=== PATIENT | female | born 1970 | race Asian ===

== ENCOUNTER 2016-04-11 18:09 | Emergency (ER) | payer MEDICARE, MEDICAID ==
[~2016-04-11] VITALS: Ht 152.4 cm; Wt 52.6 kg
[~2016-04-11 18:09] MED LIST: ALPR0.5T GT; ALPR0.5T PO; ASPI81TA27 PO; CLOP75TA28 PO; MORP30TA64 PO; PREG50CA PO; SEVE800T PO
[2016-04-11 18:54] LABS: Basophils # (auto) 0 uL; Basophils % (auto) 0.2 % (0.0-2.0); Eosinophils # (auto) 0 uL; Eosinophils % (auto) 0.5 % (0.0-7.0); Hematocrit 33.6 % (36.0-46.0); Hemoglobin 10.2 g/dL (12.2-16.2); Lymphocytes # (auto) 0.8 uL; Lymphocytes % (auto) 15.7 % (10.0-50.0); Mean Corpuscular Hemoglobin 27.3 pg (28.0-32.0); Mean Corpuscular Hgb Conc. 30.4 g/dL (32.0-36.0); Mean Corpuscular Volume 89.7 fL (80.0-100.0); Mean Platelet Volume 9.8 fL (7.4-10.4); Monocytes # (auto) 0.4 uL; Monocytes % (auto) 7.5 % (0.0-12.0); Neutrophils # (auto) 3.7 uL; Neutrophils % (auto) 76.1 % (37.0-80.0); Platelet Count (auto) 223 10^3/uL (140-450); Red Cell Distribution Width 17.7 % (11.6-16.0); White Blood Cell 4.8 10^3/uL (4.4-10.8)
[2016-04-11 19:17] LABS: Albumin 2.9 g/dL (3.4-5.0); BUN/Creatinine Ratio 7.2; Potassium 3.9 mmol/L (3.5-5.1)
[2016-04-11 19:20] LABS: Bilirubin, Total 0.6 mg/dL (0.2-1.0); Total Protein 7.5 g/dL (6.4-8.2)
[2016-04-11 20:33] VITALS: BP 143/85
== END 2016-04-11 21:10 | disposition home or self-care (01) ==
LOC: EDBD 18:09 → ER 18:12
DX: I13.0 Hypertensive heart and chronic kidney disease with heart failure and stage 1 through stage 4 chronic kidney disease, or unspecified chronic kidney disease (principal); I50.9 Heart failure, unspecified; N18.6 End stage renal disease; Z99.2 Dependence on renal dialysis; E11.9 Type 2 diabetes mellitus without complications; Z88.0 Allergy status to penicillin; Z88.6 Allergy status to analgesic agent; Z88.8 Allergy status to other drugs, medicaments and biological substances; Z91.041 Radiographic dye allergy status; Z87.891 Personal history of nicotine dependence; Z98.890 Other specified postprocedural states
CPT/HCPCS: 36415; 80053; 85025; 93005

== ENCOUNTER 2016-04-30 21:24 | Inpatient (IN) | payer MEDICARE, MEDICAID ==
[~2016-04-30] VITALS: Ht 152.4 cm; Wt 62.1 kg
[2016-04-30 22:14] LABS: BUN/Creatinine Ratio 4.4; Calcium 8.2 mg/dL (8.5-10.1)
[2016-04-30 22:16] LABS: Basophils # (auto) 0 uL; Basophils % (auto) 0.5 % (0.0-2.0); Eosinophils # (auto) 0 uL; Eosinophils % (auto) 2.2 % (0.0-7.0); Hematocrit 38.2 % (36.0-46.0); Hemoglobin 12.7 g/dL (12.2-16.2); Lymphocytes # (auto) 0.8 uL; Lymphocytes % (auto) 33.2 % (10.0-50.0); Mean Corpuscular Hemoglobin 29.1 pg (28.0-32.0); Mean Corpuscular Hgb Conc. 33.3 g/dL (32.0-36.0); Mean Corpuscular Volume 87.3 fL (80.0-100.0); Mean Platelet Volume 9.7 fL (7.4-10.4); Monocytes # (auto) 0.1 uL; Neutrophils # (auto) 1.4 uL; Neutrophils % (auto) 61.1 % (37.0-80.0); Platelet Count (auto) 155 10^3/uL (140-450); Red Cell Distribution Width 18.6 % (11.6-16.0); White Blood Cell 2.3 10^3/uL (4.4-10.8)
[2016-04-30 22:17] LABS: Total Protein 7.8 g/dL (6.4-8.2)
[2016-04-30 22:21] LABS: Partial Thromboplastin Time 31.9 sec (22.64-33.71)
[2016-04-30 22:23] LABS: INR 1.23 (0.9-1.15); Prothrombin Time 12.7 sec (9.37-12.3)
[2016-04-30 22:25] LABS: Potassium 2.8 mmol/L (3.5-5.1)
[2016-04-30] MEDS ORDERED: POTASSIUM CHL 20MEQ/100ML 100 ML IV ONE (22:30)
[2016-04-30 22:53] LABS: B-Type Natriuretic Peptide 694.63 pg/mL (0-100)
[2016-04-30 22:54] LABS: Temperature: 22.3 C (20.0-25.0)
[2016-05-01] VITALS (23 sets, daily range): BP systolic 145–180; BP diastolic 67–110
[2016-05-01] MEDS ORDERED: DEXTROSE (50%) 50ML SYRG IV PRN ×2 (01:00→21:30)
[2016-05-01] MEDS ORDERED: LACTULOSE 20Gm/30ML SOLN PO PRN (01:00)
[2016-05-01] MEDS ORDERED: ONDANSETRON HCL 4 MG/2 ML VIAL IV PRN (01:00)
[2016-05-01] MEDS ORDERED: NITROGLYCERIN 0.4 MG SL TAB SL PRN (01:00)
[2016-05-01] MEDS ORDERED: MORPHINE SULF INJ 2 MG/ML SYRINGE 1ML IV PRN (01:00)
[2016-05-01] MEDS: MORPHINE SULF INJ 2 MG/ML SYRINGE 1ML IV PRN ×5 (01:44→22:49)
[2016-05-01] MEDS: PREGABALIN CAPSULE 75 MG CAP PO SCH ×3 (06:06→22:51)
[2016-05-01] MEDS: InsuLIN REG 1unit/0.01ml Soln (100units/ml) SC SCH ×4 (06:11→23:57)
[2016-05-01] MEDS: ACCU-CHEK COMFORT CURVE STRIP VI SCH ×4 (06:12→23:52)
[2016-05-01] MEDS ORDERED: LISI-646 PO (07:16)
[2016-05-01] MEDS: SEVELAMER 800 MG TAB PO SCH ×3 (07:50→18:28)
[2016-05-01] MEDS ORDERED: LISINOPRIL 20 MG TAB PO SCH (10:00)
[2016-05-01] MEDS ORDERED: PANTOPRAZOLE SODIUM 40 MG/10 ML VIAL IV SCH (10:00)
[2016-05-01] MEDS: ASPirin 81 mg TAB PO SCH (10:24)
[2016-05-01] MEDS: ENOXAPARIN SOD 30 MG/0.3 ML SYRINGE SC SCH (10:24)
[2016-05-01] MEDS ORDERED: SODIUM CHL 0.9% 1000 ML BAG XX ONE (16:30)
[2016-05-01] MEDS: LABETALOL HCL 5 MG/ML 4ML SYRINGE IV PRN (20:07)
[2016-05-01] MEDS: ALPRAZolam 0.5 MG TAB PO PRN (21:30)
[2016-05-01] MEDS ORDERED: PREGABALIN CAPSULE 75 MG CAP PO SCH (22:00)
[2016-05-02] MEDS: LABETALOL HCL 5 MG/ML 4ML SYRINGE IV PRN ×3 (02:16→21:17)
[2016-05-02 05:00] VITALS: BP 157/62
[2016-05-02] MEDS: MORPHINE SULF INJ 2 MG/ML SYRINGE 1ML IV PRN ×4 (05:41→22:22)
[2016-05-02] MEDS: ACCU-CHEK COMFORT CURVE STRIP VI SCH ×3 (05:42→17:37)
[2016-05-02] MEDS: InsuLIN REG 1unit/0.01ml Soln (100units/ml) SC SCH ×3 (05:46→17:37)
[2016-05-02 06:10] LABS: Basophils # (auto) 0 uL; Basophils % (auto) 0.3 % (0.0-2.0); DEFINITIVE VIEW TRANSMISSION; Eosinophils # (auto) 0.1 uL; Eosinophils % (auto) 4.2 % (0.0-7.0); Hematocrit 26.4 % (36.0-46.0); Hemoglobin 8.8 g/dL (12.2-16.2); Lymphocytes # (auto) 1.2 uL; Lymphocytes % (auto) 39.1 % (10.0-50.0); Mean Corpuscular Hemoglobin 29.2 pg (28.0-32.0); Mean Corpuscular Hgb Conc. 33.2 g/dL (32.0-36.0); Mean Corpuscular Volume 88.1 fL (80.0-100.0); Mean Platelet Volume 9.6 fL (7.4-10.4); Monocytes # (auto) 0.3 uL; Monocytes % (auto) 8.7 % (0.0-12.0); Neutrophils # (auto) 1.5 uL; Neutrophils % (auto) 47.7 % (37.0-80.0); Platelet Count (auto) 157 10^3/uL (140-450); White Blood Cell 3.1 10^3/uL (4.4-10.8)
[2016-05-02] MEDS: SEVELAMER 800 MG TAB PO SCH ×3 (07:52→18:00)
[2016-05-02 08:31] LABS: Albumin 2.9 g/dL (3.4-5.0); BUN/Creatinine Ratio 5.4; Bilirubin, Total 0.6 mg/dL (0.2-1.0); Calcium 8.6 mg/dL (8.5-10.1); Potassium 3.3 mmol/L (3.5-5.1); Total Protein 7.2 g/dL (6.4-8.2)
[2016-05-02 09:00] VITALS: BP 136/90
[2016-05-02] MEDS ORDERED: HYDROcodone-ACET 5/325MG TAB PO ONE (09:00)
[2016-05-02] MEDS: ENOXAPARIN SOD 30 MG/0.3 ML SYRINGE SC SCH (09:09)
[2016-05-02] MEDS: PREGABALIN CAPSULE 75 MG CAP PO SCH ×2 (09:10→22:18)
[2016-05-02] MEDS: ASPirin 81 mg TAB PO SCH (09:10)
[2016-05-02] MEDS: LISINOPRIL 20 MG TAB PO SCH (10:00)
[2016-05-02 13:00] VITALS: BP 136/76
[2016-05-02] MEDS ORDERED: EPOETIN ALFA 10,000 UNIT/1 ML VIAL IV ONE (14:00)
[2016-05-02 17:17] VITALS: BP 133/54
[2016-05-02] MEDS: Novasource Renal 8 Ounces PO SCH (18:00)
[2016-05-02 22:00] VITALS: BP 170/73
[2016-05-02] MEDS: ALPRAZolam 0.5 MG TAB PO PRN (22:18)
[2016-05-03] MEDS: ACCU-CHEK COMFORT CURVE STRIP VI SCH ×4 (00:10→17:53)
[2016-05-03] MEDS: InsuLIN REG 1unit/0.01ml Soln (100units/ml) SC SCH ×5 (00:25→23:46)
[2016-05-03] MEDS: MORPHINE SULF INJ 2 MG/ML SYRINGE 1ML IV PRN ×4 (05:07→20:58)
[2016-05-03 05:49] VITALS: BP 138/79
[2016-05-03] MEDS: Novasource Renal 8 Ounces PO SCH ×2 (08:00→17:53)
[2016-05-03] MEDS: SEVELAMER 800 MG TAB PO SCH ×3 (08:12→17:53)
[2016-05-03 08:14] VITALS: BP 164/77
[2016-05-03 08:19] LABS: Hematocrit 24.6 % (36.0-46.0); Hemoglobin 8.1 g/dL (12.2-16.2)
[2016-05-03 08:35] LABS: Potassium 3.4 mmol/L (3.5-5.1)
[2016-05-03 08:49] LABS: Magnesium 2.5 mg/dL (1.6-2.6)
[2016-05-03] MEDS ORDERED: POTASSIUM CHL 10 Meq TABLET PO ONE (09:30)
[2016-05-03] MEDS: PREGABALIN CAPSULE 75 MG CAP PO SCH ×2 (10:39→21:58)
[2016-05-03] MEDS: ASPirin 81 mg TAB PO SCH (10:40)
[2016-05-03] MEDS: LISINOPRIL 20 MG TAB PO SCH (10:40)
[2016-05-03] MEDS: ENOXAPARIN SOD 30 MG/0.3 ML SYRINGE SC SCH (10:41)
[2016-05-03 13:00] VITALS: BP 80/58
[2016-05-03 16:53] VITALS: BP 142/76
[2016-05-03 22:00] VITALS: BP 93/58
[2016-05-03] MEDS: ALPRAZolam 0.5 MG TAB PO PRN (23:31)
[2016-05-04 06:00] VITALS: BP 91/31
[2016-05-04] MEDS: ACCU-CHEK COMFORT CURVE STRIP VI SCH ×4 (06:18→18:05)
[2016-05-04] MEDS: InsuLIN REG 1unit/0.01ml Soln (100units/ml) SC SCH ×3 (06:19→18:00)
[2016-05-04 07:34] LABS: Basophils # (auto) 0 uL; Basophils % (auto) 0.4 % (0.0-2.0); DEFINITIVE VIEW TRANSMISSION; Eosinophils # (auto) 0 uL; Eosinophils % (auto) 0.5 % (0.0-7.0); Hematocrit 28.1 % (36.0-46.0); Hemoglobin 8.9 g/dL (12.2-16.2); Lymphocytes # (auto) 1.3 uL; Lymphocytes % (auto) 35.1 % (10.0-50.0); Mean Corpuscular Hemoglobin 28.3 pg (28.0-32.0); Mean Corpuscular Hgb Conc. 31.8 g/dL (32.0-36.0); Mean Corpuscular Volume 89.2 fL (80.0-100.0); Mean Platelet Volume 9.9 fL (7.4-10.4); Monocytes # (auto) 0.4 uL; Monocytes % (auto) 11.1 % (0.0-12.0); Neutrophils % (auto) 52.9 % (37.0-80.0); Platelet Count (auto) 113 10^3/uL (140-450); Red Cell Distribution Width 19.6 % (11.6-16.0); White Blood Cell 3.8 10^3/uL (4.4-10.8)
[2016-05-04 08:00] LABS: BUN/Creatinine Ratio 9.3; Calcium 8.9 mg/dL (8.5-10.1); Potassium 4.6 mmol/L (3.5-5.1)
[2016-05-04] MEDS: Novasource Renal 8 Ounces PO SCH ×2 (08:00→18:05)
[2016-05-04] MEDS: SEVELAMER 800 MG TAB PO SCH ×3 (08:25→18:04)
[2016-05-04 08:30] VITALS: BP 68/45
[2016-05-04] MEDS ORDERED: LEVOFLOXACIN 750MG 150 ML IV SCH (08:45)
[2016-05-04] MEDS ORDERED: cefTRIAXone 1GM/50ML D5W 50 ML IV SCH (09:00)
[2016-05-04] MEDS ORDERED: LEVOFLOXACIN 750MG 150 ML IV ONE (09:00)
[2016-05-04 09:23] LABS: Partial Thromboplastin Time 39.8 sec (22.64-33.71)
[2016-05-04 09:24] LABS: INR 1.38 (0.9-1.15); Prothrombin Time 14.2 sec (9.37-12.3)
[2016-05-04] MEDS: ENOXAPARIN SOD 30 MG/0.3 ML SYRINGE SC SCH (10:00)
[2016-05-04] MEDS: PREGABALIN CAPSULE 75 MG CAP PO SCH ×2 (11:58→21:46)
[2016-05-04] MEDS: LISINOPRIL 20 MG TAB PO SCH (11:59)
[2016-05-04] MEDS: ASPirin 81 mg TAB PO SCH (11:59)
[2016-05-04] MEDS ORDERED: LEVO750T64 PO (12:05)
[2016-05-04 12:16] VITALS: BP 168/73
[2016-05-04] MEDS: LABETALOL HCL 5 MG/ML 4ML SYRINGE IV PRN (15:45)
[2016-05-04 16:43] VITALS: BP 154/69
[2016-05-04 17:35] LABS: Body Fluid Polymorphonuclear 10 %
[2016-05-04 21:30] VITALS: BP 146/66
[2016-05-04] MEDS: MORPHINE SULF INJ 2 MG/ML SYRINGE 1ML IV PRN (21:50)
[2016-05-04] MEDS: ALPRAZolam 0.5 MG TAB PO PRN (23:15)
[2016-05-05] VITALS (7 sets, daily range): BP systolic 124–154; BP diastolic 44–95
[2016-05-05] MEDS: InsuLIN REG 1unit/0.01ml Soln (100units/ml) SC SCH ×4 (05:54→17:58)
[2016-05-05] MEDS: ACCU-CHEK COMFORT CURVE STRIP VI SCH ×5 (05:57→23:55)
[2016-05-05] MEDS: MORPHINE SULF INJ 2 MG/ML SYRINGE 1ML IV PRN ×2 (07:53→21:57)
[2016-05-05] MEDS: SEVELAMER 800 MG TAB PO SCH ×3 (07:57→18:09)
[2016-05-05] MEDS: Novasource Renal 8 Ounces PO SCH ×2 (08:00→17:57)
[2016-05-05] MEDS: ENOXAPARIN SOD 30 MG/0.3 ML SYRINGE SC SCH (08:57)
[2016-05-05] MEDS: PREGABALIN CAPSULE 75 MG CAP PO SCH ×2 (08:58→21:57)
[2016-05-05] MEDS: LISINOPRIL 20 MG TAB PO SCH (08:58)
[2016-05-05] MEDS: ASPirin 81 mg TAB PO SCH (08:58)
[2016-05-05] MEDS ORDERED: LEVOFLOXACIN 500MG 100 ML IV SCH (10:00)
[2016-05-05] MEDS ORDERED: SODIUM CHL 0.9% 1000 ML BAG XX ONE (12:00)
[2016-05-05] MEDS ORDERED: EPOETIN ALFA 10,000 UNIT/1 ML VIAL IV ONE (12:00)
[2016-05-05 17:07] LABS: Albumin, Body Fluid 2.4 g/dL (.)
[2016-05-05] MEDS: ALPRAZolam 0.5 MG TAB PO PRN (23:54)
[2016-05-06] MEDS: MORPHINE SULF INJ 2 MG/ML SYRINGE 1ML IV PRN ×4 (05:30→18:40)
[2016-05-06 05:33] VITALS: BP 139/68
[2016-05-06] MEDS: ACCU-CHEK COMFORT CURVE STRIP VI SCH ×3 (06:00→17:41)
[2016-05-06] MEDS: InsuLIN REG 1unit/0.01ml Soln (100units/ml) SC SCH ×4 (06:01→17:45)
[2016-05-06 09:00] VITALS: BP 144/87
[2016-05-06] MEDS ORDERED: LEVOFLOXACIN 500MG 100 ML IV SCH (09:00)
[2016-05-06] MEDS: LISINOPRIL 20 MG TAB PO SCH (09:53)
[2016-05-06] MEDS: SEVELAMER 800 MG TAB PO SCH ×3 (09:53→17:39)
[2016-05-06] MEDS: ENOXAPARIN SOD 30 MG/0.3 ML SYRINGE SC SCH (09:54)
[2016-05-06] MEDS: ASPirin 81 mg TAB PO SCH (10:00)
[2016-05-06] MEDS: Novasource Renal 8 Ounces PO SCH ×2 (10:02→17:03)
[2016-05-06] MEDS: PREGABALIN CAPSULE 75 MG CAP PO SCH (11:45)
[2016-05-06 13:00] VITALS: BP 170/74
[2016-05-06] MEDS: LABETALOL HCL 5 MG/ML 4ML SYRINGE IV PRN (13:08)
[2016-05-06 17:00] VITALS: BP 142/69
== END 2016-05-06 21:00 | disposition home or self-care (01) | DRG 291 ==
LOC: ER 21:24 → TELE 21:25 → ICU WEST 05-01 03:43 → TELE-WESTW 05-01 22:13 → WEST WING 05-06 00:37
PROVIDERS: ADMIT Family Medicine; ATTEND Internal Medicine
PROC: 0W993ZZ Drainage of Right Pleural Cavity, Percutaneous Approach (ICD-10-PCS; principal; 2016-04-30)
PROC: 5A1D60Z (ICD-10-PCS; 2016-05-02)
DX: I13.2 Hypertensive heart and chronic kidney disease with heart failure and with stage 5 chronic kidney disease, or end stage renal disease (principal); I50.23 Acute on chronic systolic (congestive) heart failure; J96.01 Acute respiratory failure with hypoxia; N18.6 End stage renal disease; E44.0 Moderate protein-calorie malnutrition; F11.20 Opioid dependence, uncomplicated; E87.6 Hypokalemia; E11.65 Type 2 diabetes mellitus with hyperglycemia; E11.22 Type 2 diabetes mellitus with diabetic chronic kidney disease; D63.8 Anemia in other chronic diseases classified elsewhere; E11.21 Type 2 diabetes mellitus with diabetic nephropathy; E11.40 Type 2 diabetes mellitus with diabetic neuropathy, unspecified; E87.70 Fluid overload, unspecified; G89.29 Other chronic pain; Z79.4 Long term (current) use of insulin; Z87.891 Personal history of nicotine dependence; Z91.19 Patient's noncompliance with other medical treatment and regimen; Z95.5 Presence of coronary angioplasty implant and graft; Z99.2 Dependence on renal dialysis
CPT/HCPCS: 36415; 36600; 71010; 76942; 80048; 80053; 82805; 82962; 83036; 83615; 83735; 83880; 84132; 84702; 85014; 85018; 85025; 85610; 85730; 86850; 86900; 86901; 86920; 87081; 89051; 90935; 93005; 93971; 94660; 96360; 96361; C9113; J0885; J1642; J1815; J1956; J3480; J3490

== ENCOUNTER 2017-04-20 16:06 | Inpatient (IN) | payer MEDICARE, MEDICAID ==
[~2017-04-20] VITALS: Ht 157.5 cm; Wt 58.0 kg
[~2017-04-20 16:06] MED LIST changes: -ALPR0.5T GT; +LISI-646 PO; +MORP-110 PO; -MORP30TA64 PO
[2017-04-20] MEDS ORDERED: SUCCINYLCHOLINE CHLORIDE 20 MG/ML 10ML VIAL IV ONE ×2 (16:11→16:15)
[2017-04-20] MEDS ORDERED: ETOMIDATE (2MG/ML) 20ML VIAL IV ONE ×2 (16:11→16:15)
[2017-04-20] MEDS ORDERED: MIDAZOLAM DRIP 50 mg/50mL 50 ML IV ONE (16:18)
[2017-04-20] MEDS ORDERED: methylPREDNISolone SOD SUCC 125 MG/2 ML VL ONE (16:20)
[2017-04-20] MEDS ORDERED: MIDAZOLAM DRIP 50 mg/50mL 50 ML IV SCH (16:21)
[2017-04-20] MEDS ORDERED: methylPREDNISolone SOD SUCC 125 MG/2 ML VL IV ONE (16:30)
[2017-04-20] MEDS ORDERED: PROPOFOL 100 ML IV ONE (16:41)
[2017-04-20 17:26] LABS: Basophils # (auto) 0 uL; Eosinophils # (auto) 0.1 uL; Monocytes # (auto) 0.8 uL
[2017-04-20 17:27] LABS: Basophils % (auto) 0.1 % (0.0-2.0); Eosinophils % (auto) 1.3 % (0.0-7.0); Hematocrit 23.8 % (36.0-46.0); Hemoglobin 7.6 g/dL (12.2-16.2); Lymphocytes # (auto) 0.9 uL; Lymphocytes % (auto) 9.4 % (10.0-50.0); Mean Corpuscular Hemoglobin 29.5 pg (28.0-32.0); Monocytes % (auto) 8.2 % (0.0-12.0); Neutrophils # (auto) 7.4 uL; Platelet Count (auto) 96 10^3/uL (140-450); Red Blood Cells 2.59 10^6/uL (4.0-5.20); Red Cell Distribution Width 15.9 % (11.8-14.3); White Blood Cell 9.1 10^3/uL (4.4-10.8)
[2017-04-20 17:39] LABS: Partial Thromboplastin Time 33.3 sec (22.64-33.71); Prothrombin Time 10.9 sec (9.37-12.3)
[2017-04-20] MEDS ORDERED: PROPOFOL 100 ML IV SCH ×2 (17:40→17:49)
[2017-04-20 17:41] LABS: Alanine Aminotransferase 12 U/L (13-56); Albumin 3.4 g/dL (3.4-5.0); Alkaline Phosphatase 133 U/L (45-117); Anion Gap 15 (5-15); Aspartate Aminotransferase 17 U/L (15-37); BUN/Creatinine Ratio 8.3; Bilirubin, Total 0.6 mg/dL (0.2-1.0); Blood Alcohol < 3.0 mg/dL (0-5); Blood Urea Nitrogen 44 mg/dL (7-18); Calcium 8.5 mg/dL (8.5-10.1); Carbon Dioxide 23 mmol/L (21-32); Chloride 97 mmol/L (98-107); GFR African American 11 mL/min; GFR Non-African American 9 mL/min; Glucose 219 mg/dL (74-106); Magnesium 2.9 mg/dL (1.6-2.6); Potassium 4.4 mmol/L (3.5-5.1); Sodium 135 mmol/L (136-145); Total Protein 7.2 g/dL (6.4-8.2)
[2017-04-20 18:40] VITALS: BP 130/95
[2017-04-20] MEDS ORDERED: SODIUM CHLORIDE 0.9% 1,000 ML IV SCH (19:05)
[2017-04-20] MEDS: MIDAZOLAM DRIP 50 mg/50mL 50 ML IV SCH (19:14)
[2017-04-20] MEDS: PROPOFOL 100 ML IV SCH (19:14)
[2017-04-20] MEDS ORDERED: MORPHINE SULFATE 4 MG/ML SYR/VIAL IV PRN (19:15)
[2017-04-20] MEDS ORDERED: NITROGLYCERIN 0.4 MG SL TAB SL PRN (19:15)
[2017-04-20] MEDS ORDERED: ONDANSETRON HCL 4 MG/2 ML VIAL IV PRN (19:15)
[2017-04-20] MEDS ORDERED: DEXTROSE (50%) 50ML SYRG IV PRN (19:15)
[2017-04-20] MEDS ORDERED: LEVOFLOXACIN 250MG 50 ML IV SCH (19:30)
[2017-04-20] MEDS ORDERED: VANCOMYCIN PER PHARMACY 0 MG IV SCH (19:30)
[2017-04-20] MEDS ORDERED: PANTOPRAZOLE 40 MG/10 ML VIAL IV ONE (19:30)
[2017-04-20] MEDS ORDERED: LEVOFLOXACIN 250MG 50 ML IV ONE (19:30)
[2017-04-20] MEDS ORDERED: LABETALOL HCL 5 MG/ML ML 20ML VIAL IV PRN (19:30)
[2017-04-20] MEDS ORDERED: FAMOTIDINE (10MG/ML) 2ML VL IV ONE (19:30)
[2017-04-20 19:42] LABS: Lactic Acid w/Reflex 2.1 mmol/L (0.4-2.0)
[2017-04-20] MEDS ORDERED: VANCOMYCIN 750 MG in D5W 5% 250 ML IV ONE (19:45)
[2017-04-20] MEDS ORDERED: HEPARIN SODIUM (PORCINE) 5000 UNITS/ML 1ML VIAL ONE (20:05)
[2017-04-20 20:25] VITALS: BP 127/36
[2017-04-20] MEDS ORDERED: HEPARIN 1,000 UNITS/ml 1ML VIAL ONE (21:48)
[2017-04-20] MEDS ORDERED: NEOMYCIN-BACITRACIN-POLYM 15GM TOP OINT TOP ONE (22:15)
[2017-04-20 22:56] LABS: Hematocrit 19.4 % (36.0-46.0)
[2017-04-20 23:02] LABS: Hemoglobin 6.2 g/dL (12.2-16.2)
[2017-04-20 23:05] VITALS: BP 116/72
[2017-04-20 23:14] VITALS: BP 89/58
[2017-04-20 23:30] VITALS: BP 94/58
[2017-04-20 23:45] VITALS: BP 101/60
[2017-04-21] VITALS (105 sets, daily range): BP systolic 81–169; BP diastolic 33–113
[2017-04-21] MEDS: ALBUTEROL SULF 2.5 MG/0.5ML(0.5%) NEB SOLN NEB SCH ×4 (00:20→18:45)
[2017-04-21] MEDS: IPRATROPIUM BROM 0.5 MG/2.5ML INH SOL NEB SCH ×4 (00:20→18:45)
[2017-04-21] MEDS: InsuLIN REG 1unit/0.01ml Soln (100units/ml) SC SCH ×4 (00:36→18:02)
[2017-04-21] MEDS: NOREPINEPHRINE 8 MG/250ML KIT 250 ML IV SCH (02:05)
[2017-04-21 04:24] LABS: Albumin 2.9 g/dL (3.4-5.0)
[2017-04-21 04:30] LABS: BUN/Creatinine Ratio 9.6; Bilirubin, Total 0.7 mg/dL (0.2-1.0); Total Protein 5.8 g/dL (6.4-8.2)
[2017-04-21] MEDS: ACCU-CHEK COMFORT CURVE STRIP VI SCH ×4 (06:20→18:02)
[2017-04-21 07:45] LABS: Basophils # (auto) 0 uL; Eosinophils # (auto) 0 uL; Hemoglobin 8.3 g/dL (12.2-16.2); Monocytes # (auto) 0.1 uL; Monocytes % (auto) 1.5 % (0.0-12.0); Neutrophils # (auto) 7.3 uL; White Blood Cell 7.9 10^3/uL (4.4-10.8)
[2017-04-21 07:47] LABS: Hematocrit 24.9 % (36.0-46.0); Lymphocytes # (auto) 0.5 uL; Lymphocytes % (auto) 6.2 % (10.0-50.0); Mean Corpuscular Hemoglobin 29.6 pg (28.0-32.0); Mean Corpuscular Hgb Conc. 33.4 g/dL (32.0-36.0); Mean Corpuscular Volume 88.6 fL (80.0-100.0); Neutrophils % (auto) 92.3 % (37.0-80.0); Platelet Count (auto) 130 10^3/uL (140-450); Red Blood Cells 2.81 10^6/uL (4.0-5.20); Red Cell Distribution Width 15.8 % (11.8-14.3)
[2017-04-21] MEDS: PROPOFOL 100 ML IV SCH ×2 (08:37→15:02)
[2017-04-21] MEDS: MIDAZOLAM DRIP 50 mg/50mL 50 ML IV SCH ×2 (09:33→15:02)
[2017-04-21] MEDS ORDERED: EPOETIN ALFA 10,000 UNIT/1 ML VIAL IV ONE (09:45)
[2017-04-21] MEDS ORDERED: SODIUM CHL 0.9% 1000 ML BAG XX ONE (09:45)
[2017-04-21] MEDS ORDERED: SODIUM CHLORIDE 0.9% 1,000 ML IV SCH (11:30)
[2017-04-21 13:04] LABS: Folate (Folic Acid) 7.06 ng/mL (5.38-24)
[2017-04-21] MEDS: LEVOFLOXACIN 250MG 50 ML IV SCH (14:00)
[2017-04-21] MEDS: FAMOTIDINE (10MG/ML) 2ML VL IV SCH (14:00)
[2017-04-21] MEDS: PANTOPRAZOLE 40 MG/10 ML VIAL IV SCH (14:00)
[2017-04-22] VITALS (101 sets, daily range): BP systolic 81–162; BP diastolic 29–92
[2017-04-22] MEDS: ALBUTEROL SULF 2.5 MG/0.5ML(0.5%) NEB SOLN NEB SCH ×4 (00:34→18:00)
[2017-04-22] MEDS: IPRATROPIUM BROM 0.5 MG/2.5ML INH SOL NEB SCH ×4 (00:34→18:00)
[2017-04-22] MEDS: NOREPINEPHRINE 8 MG/250ML KIT 250 ML IV SCH (01:45)
[2017-04-22 03:06] LABS: Basophils # (auto) 0 uL; Eosinophils # (auto) 0 uL; Hemoglobin 7.7 g/dL (12.2-16.2); White Blood Cell 6.3 10^3/uL (4.4-10.8)
[2017-04-22 03:09] LABS: Basophils % (auto) 0.1 % (0.0-2.0); Lymphocytes # (auto) 0.5 uL; Lymphocytes % (auto) 8.4 % (10.0-50.0); Mean Corpuscular Hemoglobin 29.5 pg (28.0-32.0); Mean Corpuscular Hgb Conc. 33.6 g/dL (32.0-36.0); Mean Corpuscular Volume 87.8 fL (80.0-100.0); Monocytes # (auto) 0.6 uL; Monocytes % (auto) 9.7 % (0.0-12.0); Neutrophils # (auto) 5.2 uL; Neutrophils % (auto) 81.8 % (37.0-80.0); Nucleated Red Blood Cells % 0.1 %; Platelet Count (auto) 152 10^3/uL (140-450); Red Blood Cells 2.62 10^6/uL (4.0-5.20); Red Cell Distribution Width 15.9 % (11.8-14.3)
[2017-04-22 03:27] LABS: Albumin 2.7 g/dL (3.4-5.0); BUN/Creatinine Ratio 8.7; Calcium 8.1 mg/dL (8.5-10.1)
[2017-04-22 03:40] LABS: Bilirubin, Total 0.5 mg/dL (0.2-1.0); Total Protein 5.9 g/dL (6.4-8.2)
[2017-04-22] MEDS: ACCU-CHEK COMFORT CURVE STRIP VI SCH ×4 (05:44→18:14)
[2017-04-22] MEDS: InsuLIN REG 1unit/0.01ml Soln (100units/ml) SC SCH ×4 (05:45→18:00)
[2017-04-22] MEDS ORDERED: VANCOMYCIN 1GM/250ML 250 ML IV ONE (10:45)
[2017-04-22] MEDS: FAMOTIDINE (10MG/ML) 2ML VL IV SCH (10:55)
[2017-04-22] MEDS: PANTOPRAZOLE 40 MG/10 ML VIAL IV SCH (10:55)
[2017-04-22] MEDS ORDERED: ALPRAZolam 0.5 MG TAB PO PRN (13:30)
[2017-04-22] MEDS: SEVELAMER 800 MG TAB PO SCH (20:00)
[2017-04-22] MEDS: MORPHINE SULFATE 4 MG/ML SYR/VIAL IV PRN (20:20)
[2017-04-22] MEDS: PREGABALIN 25 MG CAP PO SCH (22:05)
[2017-04-23] VITALS (52 sets, daily range): BP systolic 80–159; BP diastolic 25–97
[2017-04-23] MEDS: InsuLIN REG 1unit/0.01ml Soln (100units/ml) SC SCH ×5 (00:10→23:45)
[2017-04-23] MEDS: ACCU-CHEK COMFORT CURVE STRIP VI SCH ×5 (00:10→23:46)
[2017-04-23] MEDS: MORPHINE SULFATE 4 MG/ML SYR/VIAL IV PRN ×3 (00:20→14:43)
[2017-04-23] MEDS: ALBUTEROL SULF 2.5 MG/0.5ML(0.5%) NEB SOLN NEB SCH ×4 (00:23→19:05)
[2017-04-23] MEDS: IPRATROPIUM BROM 0.5 MG/2.5ML INH SOL NEB SCH ×4 (00:23→19:05)
[2017-04-23] MEDS: NOREPINEPHRINE 8 MG/250ML KIT 250 ML IV SCH (01:45)
[2017-04-23 05:12] LABS: Basophils # (auto) 0 uL; Basophils % (auto) 0.8 % (0.0-2.0); Eosinophils # (auto) 0.1 uL; Lymphocytes # (auto) 0.7 uL; Mean Corpuscular Volume 89.5 fL (80.0-100.0); Monocytes # (auto) 0.6 uL
[2017-04-23 05:13] LABS: Eosinophils % (auto) 1.6 % (0.0-7.0); Hematocrit 19.9 % (36.0-46.0); Lymphocytes % (auto) 13.3 % (10.0-50.0); Mean Corpuscular Hemoglobin 29.5 pg (28.0-32.0); Mean Corpuscular Hgb Conc. 32.9 g/dL (32.0-36.0); Monocytes % (auto) 11.1 % (0.0-12.0); Neutrophils # (auto) 3.6 uL; Neutrophils % (auto) 73.2 % (37.0-80.0); Platelet Count (auto) 124 10^3/uL (140-450); Red Blood Cells 2.23 10^6/uL (4.0-5.20); Red Cell Distribution Width 15.9 % (11.8-14.3)
[2017-04-23 05:17] LABS: Hemoglobin 6.6 g/dL (12.2-16.2)
[2017-04-23 05:25] LABS: BUN/Creatinine Ratio 9.1; Calcium 7.1 mg/dL (8.5-10.1); Potassium 3.9 mmol/L (3.5-5.1)
[2017-04-23] MEDS ORDERED: EPOETIN ALFA 10,000 UNIT/1 ML VIAL IV ONE (06:30)
[2017-04-23] MEDS ORDERED: LIDOCAINE 1% HCL (LOCAL ANESTH.) INJ 20ML MDV IJ ONE (06:30)
[2017-04-23] MEDS ORDERED: HYDROcodone-ACET 5/325MG TAB PO PRN (09:15)
[2017-04-23] MEDS: PREGABALIN 25 MG CAP PO SCH ×2 (10:25→22:38)
[2017-04-23] MEDS: SEVELAMER 800 MG TAB PO SCH ×3 (10:25→18:22)
[2017-04-23] MEDS: PANTOPRAZOLE 40 MG/10 ML VIAL IV SCH (10:25)
[2017-04-23] MEDS: LEVOFLOXACIN 250MG 50 ML IV SCH (10:25)
[2017-04-23] MEDS ORDERED: VANCOMYCIN 500 MG in D5W 5% 100 ML IV ONE (18:00)
[2017-04-23] MEDS: HYDROcodone-ACET 10/325MG TAB PO PRN (22:39)
[2017-04-23] MEDS: ALPRAZolam 0.5 MG TAB PO PRN (22:49)
[2017-04-24] VITALS (8 sets, daily range): BP systolic 95–147; BP diastolic 58–95
[2017-04-24] MEDS: ALBUTEROL SULF 2.5 MG/0.5ML(0.5%) NEB SOLN NEB SCH ×4 (01:11→20:13)
[2017-04-24] MEDS: IPRATROPIUM BROM 0.5 MG/2.5ML INH SOL NEB SCH ×4 (01:11→20:13)
[2017-04-24] MEDS: MORPHINE SULFATE 4 MG/ML SYR/VIAL IV PRN ×3 (02:48→16:10)
[2017-04-24] MEDS: InsuLIN REG 1unit/0.01ml Soln (100units/ml) SC SCH ×3 (06:00→18:19)
[2017-04-24] MEDS: ACCU-CHEK COMFORT CURVE STRIP VI SCH ×3 (06:15→18:19)
[2017-04-24] MEDS: HYDROcodone-ACET 10/325MG TAB PO PRN (06:21)
[2017-04-24 06:34] LABS: Basophils # (auto) 0 uL; Basophils % (auto) 0.4 % (0.0-2.0); Eosinophils # (auto) 0.1 uL; Eosinophils % (auto) 1.3 % (0.0-7.0); Hematocrit 25.6 % (36.0-46.0); Hemoglobin 8.7 g/dL (12.2-16.2); Lymphocytes # (auto) 0.6 uL; Lymphocytes % (auto) 10.3 % (10.0-50.0); Mean Corpuscular Hemoglobin 30.3 pg (28.0-32.0); Mean Corpuscular Hgb Conc. 34.1 g/dL (32.0-36.0); Mean Corpuscular Volume 88.7 fL (80.0-100.0); Monocytes # (auto) 0.6 uL; Monocytes % (auto) 11.2 % (0.0-12.0); Neutrophils # (auto) 4.3 uL; Neutrophils % (auto) 76.8 % (37.0-80.0); Nucleated Red Blood Cells % 0.1 %; Platelet Count (auto) 114 10^3/uL (140-450); Red Blood Cells 2.89 10^6/uL (4.0-5.20); White Blood Cell 5.7 10^3/uL (4.4-10.8)
[2017-04-24 06:51] LABS: Albumin 2.8 g/dL (3.4-5.0); Calcium 7.2 mg/dL (8.5-10.1); Potassium 4.2 mmol/L (3.5-5.1)
[2017-04-24 06:53] LABS: BUN/Creatinine Ratio 6.3
[2017-04-24 06:56] LABS: Bilirubin, Total 0.5 mg/dL (0.2-1.0); Total Protein 6.1 g/dL (6.4-8.2)
[2017-04-24] MEDS: SEVELAMER 800 MG TAB PO SCH ×3 (08:12→18:19)
[2017-04-24] MEDS: PANTOPRAZOLE 40 MG/10 ML VIAL IV SCH (10:06)
[2017-04-24] MEDS: PREGABALIN 25 MG CAP PO SCH ×2 (10:06→22:08)
[2017-04-24] MEDS: ALPRAZolam 0.5 MG TAB PO PRN (11:50)
[2017-04-25] VITALS (7 sets, daily range): BP systolic 107–135; BP diastolic 49–66
[2017-04-25] MEDS: InsuLIN REG 1unit/0.01ml Soln (100units/ml) SC SCH ×4 (00:05→18:00)
[2017-04-25] MEDS: ACCU-CHEK COMFORT CURVE STRIP VI SCH ×4 (00:05→18:22)
[2017-04-25] MEDS: MORPHINE SULFATE 4 MG/ML SYR/VIAL IV PRN ×5 (00:17→20:14)
[2017-04-25] MEDS: ALBUTEROL SULF 2.5 MG/0.5ML(0.5%) NEB SOLN NEB SCH ×4 (00:25→18:25)
[2017-04-25] MEDS: IPRATROPIUM BROM 0.5 MG/2.5ML INH SOL NEB SCH ×4 (00:25→18:25)
[2017-04-25] MEDS: ALPRAZolam 0.5 MG TAB PO PRN ×2 (08:28→21:34)
[2017-04-25] MEDS: SEVELAMER 800 MG TAB PO SCH ×3 (08:28→18:23)
[2017-04-25] MEDS: LEVOFLOXACIN 250MG 50 ML IV SCH (09:56)
[2017-04-25] MEDS: PREGABALIN 25 MG CAP PO SCH ×2 (09:56→21:34)
[2017-04-25] MEDS: PANTOPRAZOLE 40 MG/10 ML VIAL IV SCH (09:56)
[2017-04-25] MEDS ORDERED: SODIUM CHL 0.9% 1000 ML BAG XX ONE (10:45)
[2017-04-25] MEDS ORDERED: EPOETIN ALFA 10,000 UNIT/1 ML VIAL IV ONE (10:45)
[2017-04-25] MEDS: HYDROcodone-ACET 10/325MG TAB PO PRN (12:58)
[2017-04-26] VITALS (68 sets, daily range): BP systolic 81–172; BP diastolic 43–102
[2017-04-26] MEDS: ACCU-CHEK COMFORT CURVE STRIP VI SCH ×4 (00:38→18:20)
[2017-04-26] MEDS: InsuLIN REG 1unit/0.01ml Soln (100units/ml) SC SCH ×4 (00:38→18:21)
[2017-04-26] MEDS: MORPHINE SULFATE 4 MG/ML SYR/VIAL IV PRN (01:42)
[2017-04-26] MEDS: IPRATROPIUM BROM 0.5 MG/2.5ML INH SOL NEB SCH ×3 (06:49→18:49)
[2017-04-26] MEDS: ALBUTEROL SULF 2.5 MG/0.5ML(0.5%) NEB SOLN NEB SCH ×3 (06:49→18:49)
[2017-04-26] MEDS ORDERED: SODIUM BICARBONATE 8.4 % INJ 50ML VIAL IV ONE (06:59)
[2017-04-26 07:00] LABS: Basophils # (auto) 0 uL; Lymphocytes # (auto) 0.5 uL; Monocytes # (auto) 0.7 uL
[2017-04-26 07:02] LABS: Basophils % (auto) 0.4 % (0.0-2.0); Eosinophils # (auto) 0.1 uL; Eosinophils % (auto) 1.9 % (0.0-7.0); Hematocrit 24.5 % (36.0-46.0); Hemoglobin 8.1 g/dL (12.2-16.2); Lymphocytes % (auto) 7.4 % (10.0-50.0); Mean Corpuscular Hemoglobin 30.3 pg (28.0-32.0); Mean Corpuscular Hgb Conc. 33.3 g/dL (32.0-36.0); Mean Corpuscular Volume 90.9 fL (80.0-100.0); Monocytes % (auto) 10.7 % (0.0-12.0); Neutrophils # (auto) 5.5 uL; Neutrophils % (auto) 79.6 % (37.0-80.0); Platelet Count (auto) 112 10^3/uL (140-450); Red Blood Cells 2.69 10^6/uL (4.0-5.20); Red Cell Distribution Width 15.9 % (11.8-14.3); White Blood Cell 6.9 10^3/uL (4.4-10.8)
[2017-04-26] MEDS ORDERED: PROPOFOL 100 ML IV ONE (07:11)
[2017-04-26 07:17] LABS: Albumin 2.5 g/dL (3.4-5.0); BUN/Creatinine Ratio 7.3; Calcium 7.6 mg/dL (8.5-10.1); Potassium 4.7 mmol/L (3.5-5.1)
[2017-04-26] MEDS: MIDAZOLAM DRIP 50 mg/50mL 50 ML IV SCH ×4 (07:19→23:01)
[2017-04-26 07:22] LABS: Bilirubin, Total 0.4 mg/dL (0.2-1.0)
[2017-04-26] MEDS ORDERED: MIDAZOLAM HCL 20 ML IV ONE (07:24)
[2017-04-26] MEDS: PROPOFOL 100 ML IV SCH (07:56)
[2017-04-26] MEDS ORDERED: MIDAZOLAM DRIP 50 mg/50mL 50 ML IV SCH (07:56)
[2017-04-26] MEDS ORDERED: NOREPINEPHRINE 8 MG/250ML KIT 250 ML IV ONE (08:22)
[2017-04-26] MEDS: NOREPINEPHRINE 8 MG/250ML KIT 250 ML IV SCH (08:45)
[2017-04-26] MEDS ORDERED: EPOETIN ALFA 10,000 UNIT/1 ML VIAL IV ONE ×2 (10:00)
[2017-04-26] MEDS ORDERED: SODIUM CHL 0.9% 1000 ML BAG XX ONE (10:00)
[2017-04-26] MEDS ORDERED: EPINEPHrine HCL 1 MG/10 ML SYRG IV ONE (10:58)
[2017-04-26] MEDS ORDERED: SODIUM BICARBONATE 8.4% INJ 50ML SYRINGE IV ONE (10:58)
[2017-04-26 11:07] LABS: Albumin 2.4 g/dL (3.4-5.0); BUN/Creatinine Ratio 7.2; Bilirubin, Total 0.4 mg/dL (0.2-1.0); Calcium 7.4 mg/dL (8.5-10.1); Potassium 4.8 mmol/L (3.5-5.1)
[2017-04-26 11:51] LABS: INR 1.05 (0.9-1.15); Partial Thromboplastin Time 35.6 sec (22.64-33.71); Prothrombin Time 11.4 sec (9.37-12.3)
[2017-04-26] MEDS: SEVELAMER 800 MG TAB PO SCH ×2 (12:00→18:00)
[2017-04-26] MEDS: PANTOPRAZOLE 40 MG/10 ML VIAL IV SCH (12:24)
[2017-04-26] MEDS: LACTULOSE 20Gm/30ML SOLN GT SCH ×2 (12:24→22:00)
[2017-04-26] MEDS: PREGABALIN 25 MG CAP PO SCH ×2 (12:24→22:00)
[2017-04-26] MEDS ORDERED: methylPREDNISolone SOD SUCC 125 MG/2 ML VL IV ONE (13:00)
[2017-04-26] MEDS ORDERED: IOHEXOL 350 MG/ML 100ML IJ ONE (14:57)
[2017-04-26] MEDS ORDERED: VANCOMYCIN 1GM/250ML 250 ML IV ONE (18:00)
[2017-04-27] VITALS (99 sets, daily range): BP systolic 76–181; BP diastolic 41–118
[2017-04-27] MEDS: ALBUTEROL SULF 2.5 MG/0.5ML(0.5%) NEB SOLN NEB SCH ×4 (00:19→18:23)
[2017-04-27] MEDS: IPRATROPIUM BROM 0.5 MG/2.5ML INH SOL NEB SCH ×4 (00:19→18:23)
[2017-04-27 04:12] LABS: Albumin 2.2 g/dL (3.4-5.0); BUN/Creatinine Ratio 8.3; Bilirubin, Total 0.4 mg/dL (0.2-1.0); Calcium 7.4 mg/dL (8.5-10.1)
[2017-04-27 04:14] LABS: Potassium 5.8 mmol/L (3.5-5.1)
[2017-04-27] MEDS: ACCU-CHEK COMFORT CURVE STRIP VI SCH ×4 (06:17→17:36)
[2017-04-27] MEDS: InsuLIN REG 1unit/0.01ml Soln (100units/ml) SC SCH ×4 (06:17→17:36)
[2017-04-27] MEDS: SEVELAMER 800 MG TAB PO SCH ×3 (08:00→17:35)
[2017-04-27] MEDS: MIDAZOLAM DRIP 50 mg/50mL 50 ML IV SCH ×3 (08:36→21:22)
[2017-04-27] MEDS: NOREPINEPHRINE 8 MG/250ML KIT 250 ML IV SCH (08:45)
[2017-04-27] MEDS: PROPOFOL 100 ML IV SCH ×2 (08:50→17:21)
[2017-04-27] MEDS ORDERED: EPOETIN ALFA 10,000 UNIT/1 ML VIAL IV ONE ×2 (09:30→12:15)
[2017-04-27] MEDS ORDERED: SODIUM CHL 0.9% 1000 ML BAG XX ONE (12:15)
[2017-04-27] MEDS: LACTULOSE 20Gm/30ML SOLN GT SCH ×2 (12:48→22:00)
[2017-04-27] MEDS: PANTOPRAZOLE 40 MG/10 ML VIAL IV SCH (12:48)
[2017-04-27] MEDS: PREGABALIN 25 MG CAP PO SCH (12:48)
[2017-04-27] MEDS: LEVOFLOXACIN 250MG 50 ML IV SCH (13:55)
[2017-04-28] VITALS (73 sets, daily range): BP systolic 91–175; BP diastolic 36–92
[2017-04-28] MEDS: IPRATROPIUM BROM 0.5 MG/2.5ML INH SOL NEB SCH ×4 (00:20→18:34)
[2017-04-28] MEDS: ALBUTEROL SULF 2.5 MG/0.5ML(0.5%) NEB SOLN NEB SCH ×4 (00:20→18:34)
[2017-04-28] MEDS: ACCU-CHEK COMFORT CURVE STRIP VI SCH ×5 (00:29→23:56)
[2017-04-28] MEDS: InsuLIN REG 1unit/0.01ml Soln (100units/ml) SC SCH ×5 (00:29→23:55)
[2017-04-28] MEDS: PROPOFOL 100 ML IV SCH ×2 (01:32→06:31)
[2017-04-28] MEDS: PREGABALIN 25 MG CAP PO SCH ×3 (01:34→21:52)
[2017-04-28 04:09] LABS: Basophils # (auto) 0 uL; Basophils % (auto) 0.3 % (0.0-2.0); Eosinophils # (auto) 0 uL; Eosinophils % (auto) 0.1 % (0.0-7.0); Hematocrit 26.4 % (36.0-46.0); Hemoglobin 8.8 g/dL (12.2-16.2); Lymphocytes # (auto) 1.2 uL; Lymphocytes % (auto) 20.9 % (10.0-50.0); Mean Corpuscular Hemoglobin 29.8 pg (28.0-32.0); Mean Corpuscular Hgb Conc. 33.5 g/dL (32.0-36.0); Monocytes # (auto) 0.5 uL; Monocytes % (auto) 9.4 % (0.0-12.0); Neutrophils % (auto) 69.3 % (37.0-80.0); Platelet Count (auto) 140 10^3/uL (140-450); Red Blood Cells 2.96 10^6/uL (4.0-5.20); Red Cell Distribution Width 15.4 % (11.8-14.3); White Blood Cell 5.8 10^3/uL (4.4-10.8)
[2017-04-28 04:16] LABS: Albumin 2.2 g/dL (3.4-5.0); Calcium 7.7 mg/dL (8.5-10.1)
[2017-04-28 04:19] LABS: BUN/Creatinine Ratio 8.9
[2017-04-28 04:21] LABS: Bilirubin, Total 0.3 mg/dL (0.2-1.0); Total Protein 5.5 g/dL (6.4-8.2)
[2017-04-28] MEDS: MIDAZOLAM DRIP 50 mg/50mL 50 ML IV SCH (06:31)
[2017-04-28] MEDS: SEVELAMER 800 MG TAB PO SCH ×3 (08:00→18:00)
[2017-04-28] MEDS: LACTULOSE 20Gm/30ML SOLN GT SCH ×2 (10:00→22:00)
[2017-04-28] MEDS: PANTOPRAZOLE 40 MG/10 ML VIAL IV SCH (10:33)
[2017-04-29 00:16] VITALS: BP 110/61
[2017-04-29] MEDS: ALBUTEROL SULF 2.5 MG/0.5ML(0.5%) NEB SOLN NEB SCH ×4 (00:24→18:16)
[2017-04-29] MEDS: IPRATROPIUM BROM 0.5 MG/2.5ML INH SOL NEB SCH ×4 (00:25→18:16)
[2017-04-29 03:55] VITALS: BP 100/63
[2017-04-29 05:18] LABS: Basophils # (auto) 0 uL; Eosinophils # (auto) 0.1 uL; Hemoglobin 8.4 g/dL (12.2-16.2); Lymphocytes # (auto) 0.8 uL; Monocytes # (auto) 0.4 uL; Neutrophils # (auto) 2.6 uL
[2017-04-29 05:21] LABS: Basophils % (auto) 0.3 % (0.0-2.0); Eosinophils % (auto) 1.8 % (0.0-7.0); Hematocrit 24.9 % (36.0-46.0); Lymphocytes % (auto) 20.3 % (10.0-50.0); Mean Corpuscular Hemoglobin 29.9 pg (28.0-32.0); Mean Corpuscular Hgb Conc. 33.6 g/dL (32.0-36.0); Mean Corpuscular Volume 89.2 fL (80.0-100.0); Monocytes % (auto) 9.9 % (0.0-12.0); Neutrophils % (auto) 67.7 % (37.0-80.0); Platelet Count (auto) 98 10^3/uL (140-450); Red Blood Cells 2.79 10^6/uL (4.0-5.20); Red Cell Distribution Width 15.1 % (11.8-14.3); White Blood Cell 3.9 10^3/uL (4.4-10.8)
[2017-04-29 05:48] LABS: BUN/Creatinine Ratio 7.6; Calcium 7.6 mg/dL (8.5-10.1); Potassium 4.4 mmol/L (3.5-5.1)
[2017-04-29] MEDS: InsuLIN REG 1unit/0.01ml Soln (100units/ml) SC SCH ×3 (06:00→17:39)
[2017-04-29] MEDS: ACCU-CHEK COMFORT CURVE STRIP VI SCH ×3 (06:26→17:39)
[2017-04-29 07:30] VITALS: BP 105/59
[2017-04-29] MEDS: SEVELAMER 800 MG TAB PO SCH ×3 (08:20→17:45)
[2017-04-29] MEDS: LACTULOSE 20Gm/30ML SOLN GT SCH (09:32)
[2017-04-29] MEDS: LEVOFLOXACIN 250MG 50 ML IV SCH (09:42)
[2017-04-29] MEDS: PANTOPRAZOLE 40 MG/10 ML VIAL IV SCH (09:42)
[2017-04-29] MEDS: PREGABALIN 25 MG CAP PO SCH ×2 (09:47→22:00)
[2017-04-29] MEDS ORDERED: HYDROcodone-ACET 5/325MG TAB PO PRN (10:15)
[2017-04-29] MEDS: HYDROcodone-ACET 5/325MG TAB PO PRN ×2 (10:38→18:22)
[2017-04-29 11:59] VITALS: BP 127/75
[2017-04-29 16:00] VITALS: BP 116/56
[2017-04-29 19:46] VITALS: BP 129/58
[2017-04-29] MEDS: LACTULOSE 20Gm/30ML SOLN PO SCH (22:00)
[2017-04-30] VITALS (24 sets, daily range): BP systolic 95–209; BP diastolic 32–124
[2017-04-30] MEDS: HYDROcodone-ACET 5/325MG TAB PO PRN ×2 (00:01→10:40)
[2017-04-30] MEDS: IPRATROPIUM BROM 0.5 MG/2.5ML INH SOL NEB SCH ×4 (00:36→18:09)
[2017-04-30] MEDS: ALBUTEROL SULF 2.5 MG/0.5ML(0.5%) NEB SOLN NEB SCH ×4 (00:36→18:09)
[2017-04-30] MEDS: InsuLIN REG 1unit/0.01ml Soln (100units/ml) SC SCH ×4 (06:00→18:14)
[2017-04-30] MEDS: ACCU-CHEK COMFORT CURVE STRIP VI SCH ×4 (06:06→18:14)
[2017-04-30] MEDS: SEVELAMER 800 MG TAB PO SCH ×3 (08:00→18:00)
[2017-04-30] MEDS ORDERED: EPOETIN ALFA 10,000 UNIT/1 ML VIAL IV ONE ×2 (08:00→08:30)
[2017-04-30] MEDS ORDERED: EPOETIN ALFA 2,000 UNIT/1 ML VIAL IV ONE (08:30)
[2017-04-30] MEDS ORDERED: EPOETIN ALFA 3,000 UNIT/1 ML VIAL IV ONE (08:30)
[2017-04-30] MEDS ORDERED: ALPRAZolam 0.5 MG TAB PO PRN (09:15)
[2017-04-30] MEDS: B-COMPLEX W/ C & FOLIC ACID(NEPHROVITE TAB) PO SCH (10:39)
[2017-04-30] MEDS: LACTULOSE 20Gm/30ML SOLN PO SCH ×2 (10:39→21:15)
[2017-04-30] MEDS: PREGABALIN 25 MG CAP PO SCH ×2 (10:39→21:15)
[2017-04-30] MEDS: PANTOPRAZOLE 40 MG TAB PO SCH (10:40)
[2017-04-30] MEDS: ASCORBIC ACID 500 MG TAB PO SCH ×2 (10:40→21:25)
[2017-04-30] MEDS: PRO-STAT 64 30ML PO SCH (18:14)
[2017-04-30] MEDS: MIDAZOLAM DRIP 50 mg/50mL 50 ML IV SCH ×2 (21:01→21:47)
[2017-04-30] MEDS: PROPOFOL 100 ML IV SCH (21:25)
[2017-05-01] VITALS (85 sets, daily range): BP systolic 82–145; BP diastolic 31–106
[2017-05-01] MEDS: ALBUTEROL SULF 2.5 MG/0.5ML(0.5%) NEB SOLN NEB SCH ×4 (00:07→18:01)
[2017-05-01] MEDS: IPRATROPIUM BROM 0.5 MG/2.5ML INH SOL NEB SCH ×4 (00:07→18:01)
[2017-05-01 04:27] LABS: Basophils # (auto) 0 uL; Eosinophils # (auto) 0.1 uL; Lymphocytes # (auto) 0.8 uL; Monocytes # (auto) 0.5 uL; Neutrophils # (auto) 5.3 uL; Platelet Count (auto) 94 10^3/uL (140-450); White Blood Cell 6.7 10^3/uL (4.4-10.8)
[2017-05-01 04:29] LABS: Basophils % (auto) 0.4 % (0.0-2.0); Eosinophils % (auto) 1.1 % (0.0-7.0); Hematocrit 24.2 % (36.0-46.0); Lymphocytes % (auto) 12.6 % (10.0-50.0); Mean Corpuscular Hemoglobin 29.6 pg (28.0-32.0); Mean Corpuscular Hgb Conc. 33.2 g/dL (32.0-36.0); Monocytes % (auto) 7.1 % (0.0-12.0); Neutrophils % (auto) 78.8 % (37.0-80.0); Red Blood Cells 2.72 10^6/uL (4.0-5.20); Red Cell Distribution Width 14.6 % (11.8-14.3)
[2017-05-01 04:39] LABS: BUN/Creatinine Ratio 6.2; Calcium 7.3 mg/dL (8.5-10.1); Potassium 4.2 mmol/L (3.5-5.1)
[2017-05-01] MEDS: ACCU-CHEK COMFORT CURVE STRIP VI SCH ×4 (06:06→17:58)
[2017-05-01] MEDS: InsuLIN REG 1unit/0.01ml Soln (100units/ml) SC SCH ×4 (06:07→17:58)
[2017-05-01] MEDS: NOREPINEPHRINE 8 MG/250ML KIT 250 ML IV SCH (06:15)
[2017-05-01] MEDS: SEVELAMER 800 MG TAB PO SCH ×3 (08:00→17:58)
[2017-05-01] MEDS: PRO-STAT 64 30ML PO SCH ×2 (08:00→17:58)
[2017-05-01] MEDS: LEVOFLOXACIN 250MG 50 ML IV SCH (10:24)
[2017-05-01] MEDS: LACTULOSE 20Gm/30ML SOLN PO SCH (10:24)
[2017-05-01] MEDS: PREGABALIN 25 MG CAP PO SCH ×2 (10:24→22:35)
[2017-05-01] MEDS: B-COMPLEX W/ C & FOLIC ACID(NEPHROVITE TAB) PO SCH (10:25)
[2017-05-01] MEDS: ASCORBIC ACID 500 MG TAB PO SCH ×2 (10:25→22:35)
[2017-05-01] MEDS: PANTOPRAZOLE 40 MG TAB PO SCH (10:25)
[2017-05-01] MEDS: Novasource Renal 1 Liter GT SCH (17:58)
[2017-05-01] MEDS: MIDAZOLAM DRIP 50 mg/50mL 50 ML IV SCH (17:59)
[2017-05-01] MEDS: PROPOFOL 100 ML IV SCH (21:01)
[2017-05-02] VITALS (91 sets, daily range): BP systolic 90–143; BP diastolic 44–82
[2017-05-02] MEDS: IPRATROPIUM BROM 0.5 MG/2.5ML INH SOL NEB SCH ×4 (00:15→18:40)
[2017-05-02] MEDS: ALBUTEROL SULF 2.5 MG/0.5ML(0.5%) NEB SOLN NEB SCH ×4 (00:15→18:39)
[2017-05-02 05:03] LABS: Basophils # (auto) 0 uL; Basophils % (auto) 0.4 % (0.0-2.0); Eosinophils # (auto) 0.2 uL; Hemoglobin 8.6 g/dL (12.2-16.2); Lymphocytes # (auto) 1.1 uL; Lymphocytes % (auto) 21.1 % (10.0-50.0); Mean Corpuscular Hemoglobin 29.3 pg (28.0-32.0); Mean Corpuscular Hgb Conc. 33.2 g/dL (32.0-36.0); Mean Corpuscular Volume 88.4 fL (80.0-100.0); Monocytes # (auto) 0.4 uL; Monocytes % (auto) 7.7 % (0.0-12.0); Neutrophils # (auto) 3.6 uL; Neutrophils % (auto) 67.8 % (37.0-80.0); Platelet Count (auto) 88 10^3/uL (140-450); Red Blood Cells 2.95 10^6/uL (4.0-5.20); White Blood Cell 5.2 10^3/uL (4.4-10.8)
[2017-05-02] MEDS: InsuLIN REG 1unit/0.01ml Soln (100units/ml) SC SCH ×4 (05:35→18:15)
[2017-05-02] MEDS: ACCU-CHEK COMFORT CURVE STRIP VI SCH ×4 (05:36→18:10)
[2017-05-02 05:55] LABS: Albumin 2.4 g/dL (3.4-5.0); BUN/Creatinine Ratio 6.4; Bilirubin, Total 0.4 mg/dL (0.2-1.0); Potassium 4.3 mmol/L (3.5-5.1); Total Protein 6.3 g/dL (6.4-8.2)
[2017-05-02] MEDS: NOREPINEPHRINE 8 MG/250ML KIT 250 ML IV SCH (06:15)
[2017-05-02] MEDS: MIDAZOLAM DRIP 50 mg/50mL 50 ML IV SCH ×2 (07:58→18:30)
[2017-05-02] MEDS: HYDROcodone-ACET 5/325MG TAB PO PRN ×2 (07:59→15:24)
[2017-05-02] MEDS: PRO-STAT 64 30ML PO SCH ×2 (08:01→18:30)
[2017-05-02] MEDS: SEVELAMER 800 MG TAB PO SCH ×3 (08:01→18:30)
[2017-05-02] MEDS: PREGABALIN 25 MG CAP PO SCH ×2 (10:04→22:01)
[2017-05-02] MEDS: PANTOPRAZOLE 40 MG/10 ML VIAL IV SCH (10:04)
[2017-05-02] MEDS: B-COMPLEX W/ C & FOLIC ACID(NEPHROVITE TAB) PO SCH (10:04)
[2017-05-02] MEDS: ASCORBIC ACID 500 MG TAB PO SCH ×2 (10:04→22:01)
[2017-05-02] MEDS: LACTULOSE 20Gm/30ML SOLN PO SCH (10:04)
[2017-05-02] MEDS: Novasource Renal 1 Liter GT SCH (18:30)
[2017-05-02] MEDS: PROPOFOL 100 ML IV SCH (21:01)
[2017-05-03] VITALS (81 sets, daily range): BP systolic 91–150; BP diastolic 43–81
[2017-05-03] MEDS: IPRATROPIUM BROM 0.5 MG/2.5ML INH SOL NEB SCH ×4 (00:20→18:27)
[2017-05-03] MEDS: ALBUTEROL SULF 2.5 MG/0.5ML(0.5%) NEB SOLN NEB SCH ×4 (00:20→18:27)
[2017-05-03 04:03] LABS: Basophils # (auto) 0 uL; Eosinophils # (auto) 0.2 uL; Hemoglobin 7.4 g/dL (12.2-16.2); Lymphocytes # (auto) 0.9 uL; Monocytes # (auto) 0.4 uL; Platelet Count (auto) 85 10^3/uL (140-450)
[2017-05-03 04:07] LABS: Basophils % (auto) 0.4 % (0.0-2.0); Eosinophils % (auto) 4.1 % (0.0-7.0); Hematocrit 22.6 % (36.0-46.0); Lymphocytes % (auto) 20.3 % (10.0-50.0); Mean Corpuscular Hemoglobin 29.4 pg (28.0-32.0); Monocytes % (auto) 9.4 % (0.0-12.0); Neutrophils # (auto) 2.8 uL; Neutrophils % (auto) 65.8 % (37.0-80.0); Red Blood Cells 2.54 10^6/uL (4.0-5.20); Red Cell Distribution Width 15.5 % (11.8-14.3); White Blood Cell 4.3 10^3/uL (4.4-10.8)
[2017-05-03] MEDS: MIDAZOLAM DRIP 50 mg/50mL 50 ML IV SCH (04:07)
[2017-05-03 04:22] LABS: Potassium 4.4 mmol/L (3.5-5.1)
[2017-05-03 04:29] LABS: Albumin 2.4 g/dL (3.4-5.0); Bilirubin, Total 0.3 mg/dL (0.2-1.0); Calcium 7.8 mg/dL (8.5-10.1); Total Protein 5.8 g/dL (6.4-8.2)
[2017-05-03] MEDS: InsuLIN REG 1unit/0.01ml Soln (100units/ml) SC SCH ×4 (06:00→17:42)
[2017-05-03] MEDS: ACCU-CHEK COMFORT CURVE STRIP VI SCH ×4 (06:00→17:41)
[2017-05-03] MEDS: NOREPINEPHRINE 8 MG/250ML KIT 250 ML IV SCH (06:15)
[2017-05-03] MEDS: SEVELAMER 800 MG TAB PO SCH ×3 (07:57→17:42)
[2017-05-03] MEDS: PRO-STAT 64 30ML PO SCH ×2 (07:57→17:42)
[2017-05-03] MEDS ORDERED: SODIUM CHL 0.9% 1000 ML BAG XX ONE (08:00)
[2017-05-03] MEDS ORDERED: EPOETIN ALFA 10,000 UNIT/1 ML VIAL IV ONE (08:00)
[2017-05-03] MEDS: HYDROcodone-ACET 5/325MG TAB PO PRN ×2 (08:57→21:31)
[2017-05-03] MEDS: ASCORBIC ACID 500 MG TAB PO SCH ×2 (09:50→21:32)
[2017-05-03] MEDS: B-COMPLEX W/ C & FOLIC ACID(NEPHROVITE TAB) PO SCH (09:51)
[2017-05-03] MEDS: PREGABALIN 25 MG CAP PO SCH ×2 (09:51→21:31)
[2017-05-03] MEDS: LACTULOSE 20Gm/30ML SOLN PO SCH (09:51)
[2017-05-03] MEDS: PANTOPRAZOLE 40 MG/10 ML VIAL IV SCH (10:35)
[2017-05-03] MEDS: LEVOFLOXACIN 250MG 50 ML IV SCH (10:36)
[2017-05-03] MEDS ORDERED: LABETALOL HCL 5 MG/ML ML 20ML VIAL IV PRN (14:00)
[2017-05-03] MEDS ORDERED: NITROGLYCERIN 0.4 MG SL TAB SL PRN (14:00)
[2017-05-03] MEDS ORDERED: DEXTROSE (50%) 50ML SYRG IV PRN (14:00)
[2017-05-03] MEDS ORDERED: LORazepam 2MG/ML-1ML VIAL IV PRN (14:00)
[2017-05-03] MEDS ORDERED: MORPHINE SULFATE 4 MG/ML SYR/VIAL IV PRN (14:00)
[2017-05-03] MEDS ORDERED: ONDANSETRON HCL 4 MG/2 ML VIAL IV PRN (14:00)
[2017-05-03] MEDS: MORPHINE SULFATE 4 MG/ML SYR/VIAL IV PRN (23:28)
[2017-05-04] VITALS (14 sets, daily range): BP systolic 105–145; BP diastolic 48–79
[2017-05-04] MEDS: ALBUTEROL SULF 2.5 MG/0.5ML(0.5%) NEB SOLN NEB SCH ×4 (00:10→19:39)
[2017-05-04] MEDS: IPRATROPIUM BROM 0.5 MG/2.5ML INH SOL NEB SCH ×4 (00:10→19:39)
[2017-05-04] MEDS: ACCU-CHEK COMFORT CURVE STRIP VI SCH ×4 (00:27→18:25)
[2017-05-04 04:25] LABS: Basophils # (auto) 0 uL; Basophils % (auto) 0.6 % (0.0-2.0); Eosinophils # (auto) 0.2 uL; Hematocrit 28.2 % (36.0-46.0); Hemoglobin 9.1 g/dL (12.2-16.2); Mean Corpuscular Hemoglobin 28.5 pg (28.0-32.0); Mean Corpuscular Hgb Conc. 32.3 g/dL (32.0-36.0); Mean Corpuscular Volume 88.1 fL (80.0-100.0); Monocytes # (auto) 0.5 uL; Monocytes % (auto) 11.7 % (0.0-12.0); Neutrophils # (auto) 2.5 uL; Neutrophils % (auto) 58.7 % (37.0-80.0); Nucleated Red Blood Cells % 0.2 %; Platelet Count (auto) 90 10^3/uL (140-450); Red Cell Distribution Width 16.6 % (11.8-14.3); White Blood Cell 4.2 10^3/uL (4.4-10.8)
[2017-05-04 04:43] LABS: Alanine Aminotransferase < 6 U/L (13-56); Albumin 2.5 g/dL (3.4-5.0); Alkaline Phosphatase 111 U/L (45-117); Anion Gap 11 (5-15); Aspartate Aminotransferase 13 U/L (15-37); BUN/Creatinine Ratio 5.8; Bilirubin, Total 0.5 mg/dL (0.2-1.0); Blood Urea Nitrogen 32 mg/dL (7-18); Calcium 8.2 mg/dL (8.5-10.1); Carbon Dioxide 29 mmol/L (21-32); Chloride 100 mmol/L (98-107); GFR African American 11 mL/min; GFR Non-African American 9 mL/min; Glucose 90 mg/dL (74-106); Potassium 4.5 mmol/L (3.5-5.1); Sodium 140 mmol/L (136-145); Total Protein 6.4 g/dL (6.4-8.2)
[2017-05-04] MEDS: HYDROcodone-ACET 5/325MG TAB PO PRN ×3 (05:13→21:05)
[2017-05-04] MEDS: InsuLIN REG 1unit/0.01ml Soln (100units/ml) SC SCH ×4 (05:49→18:00)
[2017-05-04] MEDS: MORPHINE SULFATE 4 MG/ML SYR/VIAL IV PRN ×3 (06:55→22:06)
[2017-05-04] MEDS: PRO-STAT 64 30ML PO SCH ×2 (08:00→18:00)
[2017-05-04] MEDS: LACTULOSE 20Gm/30ML SOLN PO SCH (09:59)
[2017-05-04] MEDS: B-COMPLEX W/ C & FOLIC ACID(NEPHROVITE TAB) PO SCH (09:59)
[2017-05-04] MEDS: ASCORBIC ACID 500 MG TAB PO SCH ×2 (09:59→21:05)
[2017-05-04] MEDS: SEVELAMER 800 MG TAB PO SCH ×3 (09:59→18:25)
[2017-05-04] MEDS: PREGABALIN 25 MG CAP PO SCH ×2 (09:59→21:05)
[2017-05-04] MEDS: PANTOPRAZOLE 40 MG/10 ML VIAL IV SCH (09:59)
[2017-05-05] MEDS: ALBUTEROL SULF 2.5 MG/0.5ML(0.5%) NEB SOLN NEB SCH ×4 (00:08→18:37)
[2017-05-05] MEDS: IPRATROPIUM BROM 0.5 MG/2.5ML INH SOL NEB SCH ×4 (00:08→18:37)
[2017-05-05] MEDS: InsuLIN REG 1unit/0.01ml Soln (100units/ml) SC SCH ×4 (00:24→18:11)
[2017-05-05] MEDS: ACCU-CHEK COMFORT CURVE STRIP VI SCH ×4 (00:24→18:11)
[2017-05-05] MEDS ORDERED: EPOETIN ALFA 10,000 UNIT/1 ML VIAL IV ONE (04:00)
[2017-05-05] MEDS ORDERED: SODIUM CHL 0.9% 1000 ML BAG XX ONE (04:00)
[2017-05-05 05:28] VITALS: BP 111/58
[2017-05-05] MEDS: MORPHINE SULFATE 4 MG/ML SYR/VIAL IV PRN ×3 (05:34→23:30)
[2017-05-05] MEDS: HYDROcodone-ACET 5/325MG TAB PO PRN ×3 (06:55→20:32)
[2017-05-05] MEDS: PRO-STAT 64 30ML PO SCH ×2 (08:00→18:12)
[2017-05-05] MEDS: SEVELAMER 800 MG TAB PO SCH ×3 (08:00→18:12)
[2017-05-05 09:00] VITALS: BP 124/58
[2017-05-05] MEDS ORDERED: MORPHINE SULFATE 4 MG/ML SYR/VIAL IV PRN (10:45)
[2017-05-05] MEDS ORDERED: ALBUMIN 25% 100 ML IV ONE (10:45)
[2017-05-05] MEDS ORDERED: ALBUMIN 25% 50 ML IV ONE ×2 (10:49→10:58)
[2017-05-05 12:50] VITALS: BP 129/46
[2017-05-05 13:32] VITALS: BP 154/78
[2017-05-05] MEDS: LACTULOSE 20Gm/30ML SOLN PO SCH (13:56)
[2017-05-05] MEDS: B-COMPLEX W/ C & FOLIC ACID(NEPHROVITE TAB) PO SCH (13:56)
[2017-05-05] MEDS: ASCORBIC ACID 500 MG TAB PO SCH ×2 (13:57→23:30)
[2017-05-05] MEDS: PREGABALIN 25 MG CAP PO SCH ×2 (13:57→23:30)
[2017-05-05] MEDS: PANTOPRAZOLE 40 MG/10 ML VIAL IV SCH (13:58)
[2017-05-05 17:00] VITALS: BP 140/70
[2017-05-05 22:00] VITALS: BP 131/69
[2017-05-06] MEDS: ACCU-CHEK COMFORT CURVE STRIP VI SCH ×3 (00:22→12:24)
[2017-05-06] MEDS: ALBUTEROL SULF 2.5 MG/0.5ML(0.5%) NEB SOLN NEB SCH ×3 (00:35→11:53)
[2017-05-06] MEDS: IPRATROPIUM BROM 0.5 MG/2.5ML INH SOL NEB SCH ×3 (00:35→11:53)
[2017-05-06] MEDS: HYDROcodone-ACET 5/325MG TAB PO PRN ×3 (03:50→15:48)
[2017-05-06 05:00] VITALS: BP 131/96
[2017-05-06] MEDS: MORPHINE SULFATE 4 MG/ML SYR/VIAL IV PRN ×2 (05:30→11:47)
[2017-05-06] MEDS: InsuLIN REG 1unit/0.01ml Soln (100units/ml) SC SCH ×3 (05:35→12:24)
[2017-05-06] MEDS: PRO-STAT 64 30ML PO SCH (08:00)
[2017-05-06] MEDS: SEVELAMER 800 MG TAB PO SCH ×2 (08:49→12:23)
[2017-05-06 09:00] VITALS: BP_SYST 126; BP_SYST 136; BP_DIAS 57; BP_DIAS 71
[2017-05-06] MEDS: LACTULOSE 20Gm/30ML SOLN PO SCH (10:00)
[2017-05-06] MEDS: PANTOPRAZOLE 40 MG/10 ML VIAL IV SCH (10:24)
[2017-05-06] MEDS: ASCORBIC ACID 500 MG TAB PO SCH (10:24)
[2017-05-06] MEDS: B-COMPLEX W/ C & FOLIC ACID(NEPHROVITE TAB) PO SCH (10:25)
[2017-05-06] MEDS: PREGABALIN 25 MG CAP PO SCH (10:25)
[2017-05-06 12:04] VITALS: BP 141/68
[2017-05-06 17:02] VITALS: BP 142/78
== END 2017-05-06 17:47 | disposition home or self-care (01) | DRG 871 ==
LOC: EDBD 16:06 → ER 16:06 → TELE 16:07 → ICU WEST 23:06 → TELE-CENTR 04-23 15:40 → ICU WEST 04-26 09:51 → DOU IN ICU 04-28 20:22 → CENTRAL 04-30 15:02 → TELE-CENTR 04-30 18:47 → ICU WEST 05-01 00:33 → TELE-CENTR 05-04 11:05
PROVIDERS: ADMIT Internal Medicine; ATTEND Internal Medicine
PROC: 5A1945Z Respiratory Ventilation, 24-96 Consecutive Hours (ICD-10-PCS; principal; 2017-04-20)
PROC: 0BH17EZ Insertion of Endotracheal Airway into Trachea, Via Natural or Artificial Opening (ICD-10-PCS; 2017-04-20)
PROC: 06HY33Z Insertion of Infusion Device into Lower Vein, Percutaneous Approach (ICD-10-PCS; 2017-04-20)
PROC: 30233N1 Transfusion of Nonautologous Red Blood Cells into Peripheral Vein, Percutaneous Approach (ICD-10-PCS; 2017-04-21)
PROC: 5A1D70Z Performance of Urinary Filtration, Intermittent, Less than 6 Hours Per Day (ICD-10-PCS; 2017-04-23)
PROC: 5A12012 Performance of Cardiac Output, Single, Manual (ICD-10-PCS; 2017-04-26)
PROC: 5A1945Z Respiratory Ventilation, 24-96 Consecutive Hours (ICD-10-PCS; 2017-04-26)
PROC: 0BH17EZ Insertion of Endotracheal Airway into Trachea, Via Natural or Artificial Opening (ICD-10-PCS; 2017-04-26)
PROC: 5A1D70Z Performance of Urinary Filtration, Intermittent, Less than 6 Hours Per Day (ICD-10-PCS; 2017-04-27)
PROC: 5A1D70Z Performance of Urinary Filtration, Intermittent, Less than 6 Hours Per Day (ICD-10-PCS; 2017-04-28)
PROC: 5A12012 Performance of Cardiac Output, Single, Manual (ICD-10-PCS; 2017-04-30)
PROC: 5A1945Z Respiratory Ventilation, 24-96 Consecutive Hours (ICD-10-PCS; 2017-04-30)
PROC: 0BH17EZ Insertion of Endotracheal Airway into Trachea, Via Natural or Artificial Opening (ICD-10-PCS; 2017-04-30)
PROC: 5A1D70Z Performance of Urinary Filtration, Intermittent, Less than 6 Hours Per Day (ICD-10-PCS; 2017-04-30)
PROC: 5A1D70Z Performance of Urinary Filtration, Intermittent, Less than 6 Hours Per Day (ICD-10-PCS; 2017-05-01)
PROC: 5A1D70Z Performance of Urinary Filtration, Intermittent, Less than 6 Hours Per Day (ICD-10-PCS; 2017-05-03)
PROC: 5A1D70Z Performance of Urinary Filtration, Intermittent, Less than 6 Hours Per Day (ICD-10-PCS; 2017-05-05)
DX: A41.9 Sepsis, unspecified organism (principal); E43 Unspecified severe protein-calorie malnutrition; J96.21 Acute and chronic respiratory failure with hypoxia; R65.21 Severe sepsis with septic shock; J15.6 Pneumonia due to other Gram-negative bacteria; G92 Toxic encephalopathy; E11.21 Type 2 diabetes mellitus with diabetic nephropathy; E87.3 Alkalosis; D69.6 Thrombocytopenia, unspecified; N18.6 End stage renal disease; I13.2 Hypertensive heart and chronic kidney disease with heart failure and with stage 5 chronic kidney disease, or end stage renal disease; G93.1 Anoxic brain damage, not elsewhere classified; E87.1 Hypo-osmolality and hyponatremia; F11.20 Opioid dependence, uncomplicated; N25.81 Secondary hyperparathyroidism of renal origin; E27.8 Other specified disorders of adrenal gland; D63.8 Anemia in other chronic diseases classified elsewhere; E11.22 Type 2 diabetes mellitus with diabetic chronic kidney disease; E53.8 Deficiency of other specified B group vitamins; E86.1 Hypovolemia; E87.5 Hyperkalemia; F17.210 Nicotine dependence, cigarettes, uncomplicated; F41.9 Anxiety disorder, unspecified; G89.29 Other chronic pain; I25.10 Atherosclerotic heart disease of native coronary artery without angina pectoris; N25.0 Renal osteodystrophy; I70.0 Atherosclerosis of aorta; I50.9 Heart failure, unspecified; K82.8 Other specified diseases of gallbladder; Z79.4 Long term (current) use of insulin; Z68.23 Body mass index [BMI] 23.0-23.9, adult; Z82.3 Family history of stroke; Z88.8 Allergy status to other drugs, medicaments and biological substances; Z88.1 Allergy status to other antibiotic agents; Z91.041 Radiographic dye allergy status; Z88.0 Allergy status to penicillin; Z91.048 Other nonmedicinal substance allergy status; Z82.49 Family history of ischemic heart disease and other diseases of the circulatory system; Z83.3 Family history of diabetes mellitus; Z99.2 Dependence on renal dialysis; Z99.81 Dependence on supplemental oxygen
CPT/HCPCS: 31500; 36415; 36600; 51702; 70450; 70487; 70491; 71045; 71250; 71275; 73501; 74176; 80048; 80053; 80202; 80320; 82746; 82805; 82962; 83036; 83605; 83735; 84484; 84702; 85014; 85018; 85025; 85379; 85610; 85730; 86850; 86900; 86901; 86920; 87040; 87070; 87081; 87205; 90935; 92610; 93005; 93306; 93970; 94002; 94003; 94640; 96374; 96375; 97163; 99291; C9113; J0330; J0885; J1642; J1815; J2250; J2704; J3490; J7060; Q4081

== ENCOUNTER 2018-04-05 21:25 | Inpatient (IN) | payer MEDICARE, MEDICAID ==
[~2018-04-05] VITALS: Ht 149.9 cm; Wt 46.1 kg
[~2018-04-05 21:25] MED LIST changes: +ERY05OO OP; +INSLANTI SC; -LISI-646 PO; +LISI30TA36 PO; +PRED1SUS3 OP; +[UNRECOGNIZED DRUG - CODE] OP
[2018-04-05 22:25] LABS: Basophils # (auto) 0 uL; Basophils % (auto) 0.2 % (0.0-2.0); Eosinophils # (auto) 0 uL; Eosinophils % (auto) 0.1 % (0.0-7.0); Hemoglobin 12.4 g/dL (12.2-16.2); Lymphocytes # (auto) 0.7 uL; Lymphocytes % (auto) 15.2 % (10.0-50.0); Mean Corpuscular Hemoglobin 28.5 pg (28.0-32.0); Mean Corpuscular Hgb Conc. 31.7 g/dL (32.0-36.0); Mean Corpuscular Volume 89.8 fL (80.0-100.0); Monocytes # (auto) 0.2 uL; Monocytes % (auto) 5.6 % (0.0-12.0); Neutrophils # (auto) 3.4 uL; Neutrophils % (auto) 78.9 % (37.0-80.0); Nucleated Red Blood Cells % 0.1 %; Platelet Count (auto) 105 10^3/uL (140-450); Red Blood Cells 4.34 10^6/uL (4.0-5.20); Red Cell Distribution Width 16.2 % (11.8-14.3); White Blood Cell 4.4 10^3/uL (4.4-10.8)
[2018-04-05] MEDS ORDERED: ETOMIDATE (2MG/ML) 20ML VIAL IV ONE (22:39)
[2018-04-05] MEDS ORDERED: SUCCINYLCHOLINE CHLORIDE 20 MG/ML 10ML VIAL IV ONE (22:39)
[2018-04-05 22:42] LABS: Alanine Aminotransferase 25 U/L (13-56); Albumin 3.8 g/dL (3.4-5.0); Anion Gap 16 (5-15); Aspartate Aminotransferase 19 U/L (15-37); BUN/Creatinine Ratio 8.7; Blood Alcohol < 3.0 mg/dL (0-5); Calcium 9.3 mg/dL (8.5-10.1); Carbon Dioxide 25 mmol/L (21-32); Chloride 91 mmol/L (98-107); GFR African American 5 mL/min; GFR Non-African American 4 mL/min; Glucose 161 mg/dL (74-106); INR 0.98 (0.9-1.15); Magnesium 2.5 mg/dL (1.6-2.6); Partial Thromboplastin Time 29.9 sec (23.78-33.04); Potassium 5.1 mmol/L (3.5-5.1); Prothrombin Time 10.5 sec (9.27-12.13); Sodium 132 mmol/L (136-145)
[2018-04-05 22:44] LABS: Blood Urea Nitrogen 93 mg/dL (7-18)
[2018-04-05 22:48] LABS: Alkaline Phosphatase 80 U/L (45-117); Bilirubin, Total 0.4 mg/dL (0.2-1.0)
[2018-04-05] MEDS: MIDAZOLAM DRIP 50 mg/50mL 50 ML IV SCH (23:02)
[2018-04-05] MEDS ORDERED: MIDAZOLAM DRIP 50 mg/50mL 50 ML IV ONE (23:02)
[2018-04-06] VITALS (74 sets, daily range): BP systolic 59–210; BP diastolic 24–132
[2018-04-06] MEDS ORDERED: SUCCINYLCHOLINE CHLORIDE 20 MG/ML 10ML VIAL IV ONE
[2018-04-06] MEDS ORDERED: ETOMIDATE (2MG/ML) 20ML VIAL IV ONE
[2018-04-06] MEDS ORDERED: MIDAZOLAM DRIP 50 mg/50mL 50 ML IV ONE (02:38)
[2018-04-06] MEDS: MIDAZOLAM DRIP 50 mg/50mL 50 ML IV SCH ×4 (02:39→18:50)
[2018-04-06] MEDS ORDERED: LORazepam 2MG/ML-1ML VIAL IV PRN (03:30)
[2018-04-06] MEDS ORDERED: DEXTROSE (50%) 50ML SYRG IV PRN (03:30)
[2018-04-06] MEDS ORDERED: MORPHINE SULFATE 4 MG/ML SYR/VIAL IV PRN (03:30)
[2018-04-06] MEDS ORDERED: methylPREDNISolone SOD SUCC 125 MG/2 ML VL IV ONE (03:45)
--- NOTE | 2018-04-06 04:45 | NUR ---
RECEIVED PATIENT FROM E.R VIA STRETCHER, ACCOMPANIED BY RN AND R.T. PT. ON VENTILATOR, SATS 100%. ETT 7.5 AT 20 CM AT LIP. AC 14, TV 350, PEEP +5, FIO2 30%. LUNGS CLEAR UPPER LOBES, COARSE AT BASES. LARGE AMT. OF BLOOD TINGED ORAL SECRETIONS. BLOOD TINGED, THIN ETT SECRETIONS. VERSED AT 10 MG/HR, PT. MODERATELY SEDATED, RESPONDS TO PAIN BY WITHDRAWING. (+) GAG AND COUGH. PUPILS 2 FIXED LEFT, RIGHT UNABLE TO SEE DUE TO CLOUDINESS OF RETINA. PLACED ON BEDSIDE MONITOR WHICH SHOWS SINUS RHYTHM IN THE 60'S, NO ECTOPY. SBP 120-140'S, CUFF TO LLE. BILATERAL DIALYSIS FISTULAS, NON WORKING TO RIGHT UPPER ARM AND WORKING TO LEFT UPPER ARM. IV SITE #18 TO LFA, #20 TO RIGHT ANKLE, SALINE LOCKED. OGT AT 47 CM AT LIP, ABDOMEN SOFT WITH (+) B.S, SMALL, HARD, BROWN STOOL CLEANED. GUZMAN CATH IN PLACE WITH NO URINE IN BAG. RAFAEL CARE DONE. SKIN DRY, AND SCALY. NO FAMILY AT BEDSIDE.
[2018-04-06] MEDS: ACCU-CHEK COMFORT CURVE STRIP VI SCH ×3 (05:30→18:28)
[2018-04-06] MEDS: InsuLIN REG 1unit/0.01ml Soln (100units/ml) SC SCH ×3 (06:00→18:27)
[2018-04-06] MEDS ORDERED: PRED1SUS31 OP (06:05)
[2018-04-06] MEDS ORDERED: TRAV0.00 OP (06:05)
[2018-04-06] MEDS ORDERED: TIMO0.5S38 OP (06:05)
[2018-04-06] MEDS ORDERED: BRIN1SUS6 OP (06:05)
--- NOTE | 2018-04-06 07:32 | NUR ---
REPORT GIVEN TO REYNA OLMOS
[2018-04-06 08:45] LABS: Basophils # (auto) 0 uL; Basophils % (auto) 0.2 % (0.0-2.0); Eosinophils # (auto) 0 uL; Eosinophils % (auto) 0.6 % (0.0-7.0); Hematocrit 38.9 % (36.0-46.0); Hemoglobin 12.5 g/dL (12.2-16.2); Lymphocytes # (auto) 0.8 uL; Lymphocytes % (auto) 13.5 % (10.0-50.0); Mean Corpuscular Hemoglobin 28.9 pg (28.0-32.0); Mean Corpuscular Hgb Conc. 32.2 g/dL (32.0-36.0); Mean Corpuscular Volume 89.8 fL (80.0-100.0); Monocytes # (auto) 0.2 uL; Monocytes % (auto) 3.5 % (0.0-12.0); Neutrophils # (auto) 4.6 uL; Neutrophils % (auto) 82.2 % (37.0-80.0); Nucleated Red Blood Cells % 0.1 %; Platelet Count (auto) 92 10^3/uL (140-450); Red Blood Cells 4.33 10^6/uL (4.0-5.20); Red Cell Distribution Width 16.4 % (11.8-14.3); White Blood Cell 5.6 10^3/uL (4.4-10.8)
[2018-04-06 08:57] LABS: Calcium 9.2 mg/dL (8.5-10.1); Potassium 4.9 mmol/L (3.5-5.1)
[2018-04-06 09:01] LABS: BUN/Creatinine Ratio 9.7
[2018-04-06] MEDS: CLOPIDOGREL BISULFATE 75 MG TAB PO SCH (10:11)
[2018-04-06] MEDS: PANTOPRAZOLE 40 MG/10 ML VIAL IV SCH (10:11)
[2018-04-06] MEDS: ASPirin 81 mg TAB PO SCH (10:11)
--- NOTE | 2018-04-06 12:00 | NUR ---
Dialysis nurse at bedside-Orders received from Dr. aVliente early this morning.
[2018-04-06] MEDS ORDERED: NOREPINEPHRINE 8 MG/250ML KIT 250 ML IV SCH (13:20)
[2018-04-06] MEDS ORDERED: NOREPINEPHRINE 8 MG/250ML KIT 250 ML IV ONE (13:23)
--- NOTE | 2018-04-06 14:21 | NUR ---
Opening Shift Note: Report received from AMARILIS Singletary. Assumed care of patient, intubated and sedated on Versed 10mg. Notified Neprho for dialysis today. No S/S of distress/SOB or pain. Will continue to monitor for changes Q1hr and PRN. See Px assessment.
--- NOTE | 2018-04-06 15:15 | NUR ---
Dialysis complete- (2.5 liters out) tolerated well with low dose levophed to sustain blood pressure (patient sensitive to levophed) SBP was in the 70's initially -then blood pressure went up-titrated slow went down to 0.5 mcg and tolerated well and stable during the remainder of the treatment.
--- NOTE | 2018-04-06 15:34 | NUR ---
Dr. Aquino at bedside- New orders ok for Levophed, CBC, CMP, CXR, ABG, and CPAP in the morning. Orders placed in system. Addendum: 04/06/18 at 1823 by Sarah Bush RN Other orders placed by Dr. Aquino for tomorrow.
--- NOTE | 2018-04-06 18:00 | NUR ---
Patient had 3 formed brown stools qidco-vnou-btok given each time.
--- NOTE | 2018-04-06 18:35 | NUR ---
Respiratory note: Received pt on rental vent v200,pt is ETT to vent. Vent connected to red outlet and o2 source. Alarms are set and audible, Ambu bag and mask at bedside. BS are fine course sxd small nuñez.gag intact. Pt responds to stimuli and has mittens on. pt is currently moving hands after sx. pt not following any commands. RT name and pager assignment written on pts room board. Will continue to monitor q2h and as needed.
--- NOTE | 2018-04-06 19:04 | NUR ---
Endorsed care to AMARILIS Thomas.
--- NOTE | 2018-04-06 19:30 | NUR ---
REPORT RECEIVED, ASSUMED CARE.
--- NOTE | 2018-04-06 20:07 | NUR ---
Respiratory note: AT BEDSIDE FOR ROUTINE VENT CHECK, NO CHANGES MADE.
--- NOTE | 2018-04-06 20:17 | NUR ---
Respiratory note: AT BEDSIDE FOR ROUTINE VENT CHECK, NO CHANGES MADE.
--- NOTE | 2018-04-06 20:33 | NUR ---
SEDATION VACATION PT MOVED ALL EXTREMITIES, DID NOT FOLLOW COMMANDS OR OPEN EYES. PT DID TRY TO PULL TUBES AND LINES OUT.
--- NOTE | 2018-04-06 21:54 | NUR ---
VIOLETA DE LA CRUZ CALLED, GAVE UPDATE AND EXPLAINED POC TO HIM. ADDRESSED ALL QUESTIONS AND CONCERNS. NEPHEW RESPONDED WITH UNDERSTANDING AND COMPLIANCE.
[2018-04-06] MEDS: HEPARIN SODIUM (PORCINE) 5000 UNITS/ML 1ML VIAL SC SCH (22:00)
[2018-04-06] MEDS: ATORVASTATIN 20 MG TAB PO SCH (22:00)
--- NOTE | 2018-04-06 22:50 | NUR ---
PAGED HOSPITALIST REGARDING HEPARIN ADMINISTRATION AND LOW PLATELET COUNT OF 92. WILL CONFIRM WITH HOSPITALIST OKAY TO GIVE.
--- NOTE | 2018-04-06 23:16 | NUR ---
CALLBACK HOSPITALIST: CONFIRMED WITH TIARA BARNETT TO GIVE HEPARIN ORDERED.
[2018-04-07] VITALS (94 sets, daily range): BP systolic 96–190; BP diastolic 32–119
--- NOTE | 2018-04-07 00:25 | NUR ---
Respiratory note: AT BEDSIDE FOR ROUTINE VENT CHECK,HME AND SX MUKHERJEE CHANGED AT THIS TIME.
--- NOTE | 2018-04-07 02:26 | NUR ---
Respiratory note: AT BEDSIDE FOR ROUTINE VENT CHECK,NO CHANGES DONE.
[2018-04-07 04:09] LABS: Basophils # (auto) 0 uL; Basophils % (auto) 0.2 % (0.0-2.0); Eosinophils # (auto) 0 uL; Eosinophils % (auto) 0.1 % (0.0-7.0); Hematocrit 35.6 % (36.0-46.0); Hemoglobin 11.6 g/dL (12.2-16.2); Lymphocytes # (auto) 1.2 uL; Lymphocytes % (auto) 23.4 % (10.0-50.0); Mean Corpuscular Hemoglobin 28.6 pg (28.0-32.0); Mean Corpuscular Hgb Conc. 32.6 g/dL (32.0-36.0); Mean Corpuscular Volume 87.8 fL (80.0-100.0); Monocytes # (auto) 0.5 uL; Monocytes % (auto) 10.5 % (0.0-12.0); Neutrophils # (auto) 3.4 uL; Neutrophils % (auto) 65.8 % (37.0-80.0); Nucleated Red Blood Cells % 0.1 %; Platelet Count (auto) 105 10^3/uL (140-450); Red Blood Cells 4.05 10^6/uL (4.0-5.20); Red Cell Distribution Width 15.9 % (11.8-14.3); White Blood Cell 5.2 10^3/uL (4.4-10.8)
--- NOTE | 2018-04-07 04:22 | NUR ---
Respiratory note: END OF SHIFT CHECK NO CHANGES DONE WILL HAVE DAY SHIFT CONTINUE PLAN OF CARE.
[2018-04-07 04:33] LABS: Albumin 3.4 g/dL (3.4-5.0); BUN/Creatinine Ratio 7.7; Calcium 8.5 mg/dL (8.5-10.1)
[2018-04-07 04:38] LABS: Bilirubin, Total 0.5 mg/dL (0.2-1.0); Total Protein 7.8 g/dL (6.4-8.2)
[2018-04-07] MEDS: InsuLIN REG 1unit/0.01ml Soln (100units/ml) SC SCH ×5 (05:49→23:39)
[2018-04-07] MEDS: ACCU-CHEK COMFORT CURVE STRIP VI SCH ×5 (05:49→23:39)
[2018-04-07] MEDS: MIDAZOLAM DRIP 50 mg/50mL 50 ML IV SCH (05:50)
--- NOTE | 2018-04-07 07:30 | NUR ---
Opening Shift Note: Report received from AMARILIS Thomas. Assumed care of patient, awake and lethargic, on low dose versed. CPAP trial today. No S/S of distress/SOB or pain. Instructed on POC and to call for assist PRN, will continue to monitor for changes Q1hr and PRN. See Px assessment.
--- NOTE | 2018-04-07 08:25 | NUR ---
Respiratory note: CPAP TRIAL INITIATED. CPAP SETTINGS ARE VT 350/PEEP +5/ PSV 10/ 30%. PATIENT IS TOLERATING CPAP TRIAL WELL. PATIENT IS AWAKE AND ALERT AND IS ABLE TO FOLLOW COMMANDS. PATIENT'S RR 14, SPO2 99%, HR 88. RN REYNA NOTIFIED ABOUT CPAP INITIATION. WILL DRAW ABG WITHIN 30 MINUTES TO 1 HOUR.
--- NOTE | 2018-04-07 09:29 | NUR ---
Received Orders from Dr. Jessy Bunn for Taylor and Ativan for anxiety. ABG results given-extubate and place on cool aerosol mask-swallow request and I.S. as indicated per protocol.
--- NOTE | 2018-04-07 09:40 | NUR ---
Respiratory note: EXTUBATED PATIENT PER DR. ANDREWS. PATIENT WAS PLACED ON 8L COOL MIST AEROSOL AT 35%. PATIENT IS TOLERATING COOL MIST AEROSOL, RR 18, HR 99, SPO2 99% ON 35%. NO STRIDOR HEARD AND NO RESPIRATORY DISTRESS SEEN OR NOTED. WILL CONTINUE TO MONITOR PATIENT.
[2018-04-07] MEDS: CLOPIDOGREL BISULFATE 75 MG TAB PO SCH (09:48)
[2018-04-07] MEDS: HEPARIN SODIUM (PORCINE) 5000 UNITS/ML 1ML VIAL SC SCH ×2 (09:48→21:21)
[2018-04-07] MEDS: ASPirin 81 mg TAB PO SCH (09:48)
[2018-04-07] MEDS: PANTOPRAZOLE 40 MG/10 ML VIAL IV SCH (09:48)
[2018-04-07] MEDS: HYDROcodone-ACET 5/325MG TAB PO PRN ×2 (09:57→17:01)
[2018-04-07] MEDS: LORazepam 0.5 MG TAB PO PRN (09:57)
[2018-04-07] MEDS ORDERED: BRIN1SUS6 OP (10:13)
--- NOTE | 2018-04-07 10:21 | NUR ---
Extubated at 0940am. Patient tolerating well -continue to monitor.
--- NOTE | 2018-04-07 10:22 | NUR ---
Dr. Shaikh murillo for Med req orders, BP med, and down grade for this afternoon. Addendum: 04/07/18 at 1122 by Sarah Bush RN Downgrade to [facility] after 4pm and keep in [facility] for 24hrs. Metoprolol 25mg and Lisinopril ordered,.
--- NOTE | 2018-04-07 11:00 | NUR ---
WOUND CARE NOTE: IN TO SEE PATIENT AT THIS TIME FOR SKIN INTEGRITY MONITORING D/T LOW LUIS ARMANDO SCORE OF 10. PATIENT WAS ADMITTED TO [facility] WITH DIAGNOSIS OF RESPIRATORY FAILURE. SHE HAS RECENTLY BEEN EXTUBATED. PATIENT IS WOUND FREE AT THIS TIME, WITH PINK, BLANCHABLE SKIN OVER BONY PROMINENCES NOTED. PATIENT WOUND BENEFIT FROM SKIN/WOUND CARE PLAN (IMPLEMENTED), WITH FREQUENT TURN SCHEDULE Q 2 HOURS, PRN CONDITION PERMITS, WITH PRESSURE REDISTRIBUTION, USING PILLOWS/WEDGES, BID/PRN APPLICATION WITH MOISTURE BARRIER CREAM AND OPTIFOAM GENTLE SACRAL DRESSING PREVENTATIVE, DIETARY CONSULT FOR LOW LUIS ARMANDO, CONTINUED MONITORING BY WOUND CARE TEAM.
[2018-04-07] MEDS ORDERED: METOPROLOL TARTRATE 25 MG TAB PO ONE (11:15)
[2018-04-07] MEDS ORDERED: METOPROLOL TARTRATE 25 MG TAB ONE (11:23)
[2018-04-07] MEDS ORDERED: LISINOPRIL 20 MG TAB PO ONE (11:45)
[2018-04-07] MEDS: LEVOFLOXACIN 500MG 100 ML IV SCH (12:00)
--- NOTE | 2018-04-07 17:38 | NUR ---
SWALLOW EVALUATED. NURSING REPORTS PATIENT HAS BEEN COUGHING ALL DAY. SOME COUGHING NOTED BEFORE EVALUATION. PATIENT SOUNDS CONGESTED. PATIENT HAS NO TEETH, UPPER OR LOWER. PATIENT ABLE TO TOLERATE PUREE DIET TEXTURE WITH THIN LIQUIDS WITH NO OVERT SIGNS OR SYMPTOMS OF ASPIRATION. NURSING NOTIFIED.
--- NOTE | 2018-04-07 18:35 | NUR ---
Patient to have Dialysis tomorrow.
--- NOTE | 2018-04-07 18:53 | NUR ---
Endorsed care to AMARILIS Fernandez.
--- NOTE | 2018-04-07 19:50 | NUR ---
PATIENT ATTEMPTING TO FEED SELF DINNER - REPORTING SOB - REMOVED DINNER TRAY UNTIL SYMPTOMS ADDRESSED
--- NOTE | 2018-04-07 20:03 | NUR ---
C/O SOB, EXPIRATORY WHEEZE - PAGED POLICE PILOT HOSPITALIST
--- NOTE | 2018-04-07 20:20 | NUR ---
SPOKE WITH ARMANDO MENJIVAR: MADE AWARE OF PATIENT'S STATUS, AND COMPLAINTS. ORDERS FOR ALBUTEROL 2.5 MG AND ATROVENT 0.5 MG MED NEB Q4H PRN. ORDERS READBACK AND VERIFIED
--- NOTE | 2018-04-07 20:30 | NUR ---
OPENING NOTE: LETHARGIC BUT AROUSABLE. ORIENTED TO SELF, AND PLACE. NSR, HR 70s. SBP 170-180, BP CUFF ON LEFT THIGH. LABORED BREATHING, WITH DIFFICULTY COUGHING AND CLEARING SECRETIONS. LS COARSE WITH EXPIRATORY WHEEZE. SpO2>95% ON 2L NC. ABD SOFT. HYPOACTIVE BS. +FLATUS. NO BM DURING SHIFT. PER DAY SHIFT, SWALLOWS WELL. ANURIC. SKIN GROSSLY INTACT. SEE SKIN AND WOUND FLOWSHEET FOR ASSESSMENT. RIGHT FOOT 20 G PIV PATENT. DENIES PAIN, HEADACHE, DIZZINESS, N/V, NUMBNESS AND TINGLING. REINFORCED POC. MAINTAINED PATIENT SAFETY: BED LOCKED AND IN THE LOWEST POSITION, CALL LIGHT WITHIN REACH. FREQUENT VISUAL CHECKS. WILL CONT CARE
[2018-04-07] MEDS: IPRATROPIUM BROM 0.5 MG/2.5ML INH SOL NEB PRN (20:50)
[2018-04-07] MEDS: ALBUTEROL SULF 2.5 MG/0.5ML(0.5%) NEB SOLN NEB PRN (20:50)
--- NOTE | 2018-04-07 20:50 | NUR ---
Respiratory note: PRN MED NEB TX GIVEN VIA MASK, PT TOLERATED WELL. NO ADVERSE REACTIONS.
[2018-04-07] MEDS: ATORVASTATIN 20 MG TAB PO SCH ×2 (21:22→22:00)
[2018-04-07] MEDS: METOPROLOL TARTRATE 25 MG TAB PO SCH ×2 (21:22→22:00)
--- NOTE | 2018-04-07 21:39 | NUR ---
NOTED WITH STRIDOR - PAGED CHAINSTITCH TUNNEL ELASTIC OPERATOR HOSPITALIST
--- NOTE | 2018-04-07 21:45 | NUR ---
PARTIAL LINEN CHANGE COMPLETED
--- NOTE | 2018-04-07 21:53 | NUR ---
TA LOUISE, RT TO NOTIFY OF RACEMIC EPI ORDER
--- NOTE | 2018-04-07 21:53 | NUR ---
NOTIFIED ARMANDO MENJIVAR OF DEVELOPMENT OF STRIDOR: UPDATED ON PATIENT'S STATUS AND VS. ORDERS FOR 0.5 RACEMIC EPI MED NEB X1 DOSE. ORDERS READBACK AND VERIFIED.
--- NOTE | 2018-04-07 21:54 | NUR ---
SCHEDULED 0 MEDICATIONS D/T STRIDOR Addendum: 04/07/18 at 2158 by Rebecca Brown RN RN MEDICATIONS HELD
[2018-04-07] MEDS ORDERED: METOPROLOL TARTRATE 25 MG TAB PO SCH (22:00)
[2018-04-07] MEDS ORDERED: EPINEPHrine HCL 0.5 ML NEB NEB ONE (22:00)
[2018-04-07] MEDS ORDERED: EPINEPHrine HCL 0.5 ML NEB ONE (22:04)
--- NOTE | 2018-04-07 22:07 | NUR ---
Respiratory note: AT BEDSIDE FOR EPINEPHRINE MED NEB TX. STRIDOR HEAR, MED NEB GIVEN VIA MASK, PT TOLERATED WELL. PT PLACED BACK ON COOL AEROSOL AT 35% FIO2. WILL CONTINUE TO MONITOR.
--- NOTE | 2018-04-07 22:15 | NUR ---
PLACED BACK ON COOL MIST MASK BY RT DANI
--- NOTE | 2018-04-07 22:49 | NUR ---
STRIDOR REMAINS - PAGED PACKAGE SEALER HOSPITALIST
[2018-04-07] MEDS ORDERED: methylPREDNISolone SOD SUCC 125 MG/2 ML VL ONE (22:54)
[2018-04-07] MEDS ORDERED: methylPREDNISolone SOD SUCC 125 MG/2 ML VL IV ONE (23:00)
--- NOTE | 2018-04-07 23:01 | NUR ---
NOTIFIED ARMANDO MENJIVAR OF STRIDOR: ORDERS FOR 125 MG SOLUMEDROL X1 DOSE. ORDERS READBACK AND VERIFIED
--- NOTE | 2018-04-07 23:30 | NUR ---
MULTIPLE ATTEMPTS TO START PIV - UNSUCCESSFUL
--- NOTE | 2018-04-07 23:39 | NUR ---
SCHEDULED SLIDING SCALE INSULIN HELD - PATIENT NPO AT THIS TIME DUE TO STRIDOR
--- NOTE | 2018-04-07 23:47 | NUR ---
STRIDOR IMPROVED AT THIS TIME
[2018-04-08] VITALS (21 sets, daily range): BP systolic 90–192; BP diastolic 37–123
[2018-04-08] MEDS: ALBUTEROL SULF 2.5 MG/0.5ML(0.5%) NEB SOLN NEB PRN (00:42)
[2018-04-08] MEDS: IPRATROPIUM BROM 0.5 MG/2.5ML INH SOL NEB PRN (00:43)
--- NOTE | 2018-04-08 00:55 | NUR ---
CALLED INTO ROOM BY RT DANI - PATIENT WITH INCREASED WOB, LS EXTREMELY COARSE. - PLACED ORDER FOR STAT ABG AND ORDERS FOR FOLLOW UP REP HOSPITALIST TO EVALUATE PATIENT
--- NOTE | 2018-04-08 00:56 | NUR ---
Respiratory note: MED NEB TX GIVEN AT THIS TIME DUE TO INCREASED WOB AND AUDIBLE WHEEZING. DURING TREATMENT PT RIPPED OFF MASK AND APPEARED CONFUSED, RR INCREASED TO 33-35BPM. PT CLASPED HANDS AROUND THROAT AND MOUTHED SHE COULD NOT BREATHE. RN CALLED TO BEDSIDE. ABG TO BE DRAWN. WILL CONTINUE TO MONITOR.
--- NOTE | 2018-04-08 01:05 | NUR ---
Respiratory note: ABG RESULTS REPORTED TO RN, PT PLACED BACK ON COOL MIST. WILL CONTINUE TO MONITOR.
--- NOTE | 2018-04-08 01:10 | NUR ---
NOTIFIED ARMANDO MENJIVAR OF PATIENT'S STATUS: PER ARMANDO MENJIVAR, HE WILL COME TO BEDSIDE TO ASSESS
--- NOTE | 2018-04-08 01:15 | NUR ---
TIARA CAMP ATTENDANT AT BEDSIDE FOR EVALUATION - ORDERS FOR MUCOMYST
--- NOTE | 2018-04-08 01:20 | NUR ---
Respiratory note: NEW RESPIRATORY ORDER GIVEN PER PL[employer] SKY SHOW TECHNICIAN MENJIVAR, ACKNOWLEDGED.
[2018-04-08] MEDS ORDERED: IPRATROPIUM BROM 0.5 MG/2.5ML INH SOL NEB PRN (01:30)
[2018-04-08] MEDS ORDERED: ALBUTEROL SULF 2.5 MG/0.5ML(0.5%) NEB SOLN NEB PRN (01:30)
[2018-04-08] MEDS: ACETYLCYSTEINE 10 %(100MG/ML) SOL 4ML NEB SCH ×6 (01:49→22:41)
[2018-04-08] MEDS: IPRATROPIUM BROM 0.5 MG/2.5ML INH SOL NEB SCH ×6 (01:49→22:41)
[2018-04-08] MEDS: ALBUTEROL SULF 2.5 MG/0.5ML(0.5%) NEB SOLN NEB SCH ×6 (01:49→22:41)
--- NOTE | 2018-04-08 03:57 | NUR ---
COUGHED UP SMALL MUCUS PLUG
--- NOTE | 2018-04-08 03:57 | NUR ---
REMOVED COOL MIST MASK - PLACED ON NC AT 3L
[2018-04-08 04:44] LABS: Basophils # (auto) 0 uL; Basophils % (auto) 0.1 % (0.0-2.0); Eosinophils # (auto) 0 uL; Eosinophils % (auto) 0.1 % (0.0-7.0); Hematocrit 36.6 % (36.0-46.0); Lymphocytes # (auto) 0.4 uL; Lymphocytes % (auto) 7.2 % (10.0-50.0); Mean Corpuscular Hemoglobin 28.7 pg (28.0-32.0); Mean Corpuscular Hgb Conc. 32.7 g/dL (32.0-36.0); Mean Corpuscular Volume 87.8 fL (80.0-100.0); Monocytes # (auto) 0.1 uL; Monocytes % (auto) 1.5 % (0.0-12.0); Neutrophils # (auto) 4.8 uL; Neutrophils % (auto) 91.1 % (37.0-80.0); Nucleated Red Blood Cells % 0.4 %; Platelet Count (auto) 80 10^3/uL (140-450); Red Blood Cells 4.17 10^6/uL (4.0-5.20); Red Cell Distribution Width 16.4 % (11.8-14.3); White Blood Cell 5.3 10^3/uL (4.4-10.8)
[2018-04-08 05:02] LABS: BUN/Creatinine Ratio 8.4; Calcium 9.2 mg/dL (8.5-10.1); Potassium 4.5 mmol/L (3.5-5.1)
--- NOTE | 2018-04-08 05:14 | NUR ---
RESPIRATORY ASSESSMENT: APPEARS MORE RELAXED AND EASE OF BREATHING. LS REMAIN COARSE, BUT WHEEZING IMPROVED. ABLE TO EXPECTORATE MORE SPUTUM THAN PREVIOUSLY. SpO2>95% ON 2L O2 VIA NC
[2018-04-08] MEDS: ACCU-CHEK COMFORT CURVE STRIP VI SCH ×3 (05:38→18:00)
[2018-04-08] MEDS: InsuLIN REG 1unit/0.01ml Soln (100units/ml) SC SCH ×3 (05:38→18:00)
[2018-04-08] MEDS ORDERED: IPRATROPIUM BROM 0.5 MG/2.5ML INH SOL NEB SCH (06:00)
[2018-04-08] MEDS ORDERED: ALBUTEROL SULF 2.5 MG/0.5ML(0.5%) NEB SOLN NEB SCH (06:00)
--- NOTE | 2018-04-08 07:25 | NUR ---
REPORT AND CARE ENDORSED TO PAUL OLMOS
--- NOTE | 2018-04-08 09:00 | NUR ---
DIALYSIS Dialysis nurse at bedside to prepare patient for hemodialysis.
--- NOTE | 2018-04-08 09:10 | NUR ---
DIALYSIS Hemodialysis has started.
[2018-04-08] MEDS: CLOPIDOGREL BISULFATE 75 MG TAB PO SCH (10:00)
[2018-04-08] MEDS: LISINOPRIL 20 MG TAB PO SCH (10:00)
[2018-04-08] MEDS: HEPARIN SODIUM (PORCINE) 5000 UNITS/ML 1ML VIAL SC SCH ×2 (10:00→21:37)
[2018-04-08] MEDS: METOPROLOL TARTRATE 25 MG TAB PO SCH ×2 (10:00→21:35)
[2018-04-08] MEDS: PANTOPRAZOLE 40 MG/10 ML VIAL IV SCH (10:00)
[2018-04-08] MEDS: ASPirin 81 mg TAB PO SCH (10:00)
--- NOTE | 2018-04-08 20:30 | NUR ---
PATIENT REPORTS THAT HER HD SCHEDULE IS WEDNESDAY, WEDNESDAY, AND WEDNESDAY AT [facility]. SHE IS REQUESTING HD IF SHE IS TO BE DISCHARGED TOMORROW
[2018-04-08] MEDS: HYDROcodone-ACET 5/325MG TAB PO PRN (21:35)
[2018-04-08] MEDS: ATORVASTATIN 20 MG TAB PO SCH (21:36)
--- NOTE | 2018-04-08 22:00 | NUR ---
SCHEDULED HEPARIN HELD: PATIENT RECEIVING PLAVIX AND ASA. PLATELETS ONLY 80.
[2018-04-08] MEDS: LORazepam 0.5 MG TAB PO PRN (22:31)
--- NOTE | 2018-04-08 22:53 | NUR ---
REPORT CALLED TO AMARILIS DUFFY
--- NOTE | 2018-04-08 22:55 | NUR ---
REPORT RECEIVED FROM YOSELYN BELLSTAND ATTENDANT, ALL QUESTIONS AND CONCERNS ADDRESSED. WILL AWAIT PATIENTS ARRIVAL TO FLOOR.
--- NOTE | 2018-04-08 23:39 | NUR ---
PATIENT MOVED TO ROOM 275 A WITHOUT INCIDENCE; RECEIVING NURSE MADE AWARE OF PATIENT'S ARRIVAL, BED LOCKED AND IN THE LOWEST POSITION, BED ALARM ON; HEALTH SERVICES ADMINISTRATOR MADE AWARE THAT PATIENT NEEDS A CALL LIGHT
--- NOTE | 2018-04-08 23:40 | NUR ---
ICU patient trans to floor [address] transferred to room 275A via hospital bed on monitoring and evaluation advisor. All personal belongings transferred with patient to receiving floor. Patient care transferred to Cyn OLMOS. Patient now on laboratory monitor #28. Patient reports last dialysis today(Wednesday). Right upper arm fistula noted, dressing c/d/i. Respirations even and regular, no s/s of distress noted on room air. Left foot deformity noted, pulses palpable ble. Patient reports wearing boot to left foot at home and ambulates with walker. Bed alarm placed on.
--- NOTE | 2018-04-08 23:45 | NUR ---
Fall precautions note Patient assessed and determined to be fall risk. Fall precautions in place, including side bedrails up X 2, bed alarms on, fall risk wristband in place. Patient instructed to call staff regarding any needs involving getting out of bed or bathroom needs. Patient verbalized understanding.
[2018-04-09] MEDS: ACCU-CHEK COMFORT CURVE STRIP VI SCH ×4 (02:01→17:34)
[2018-04-09] MEDS: InsuLIN REG 1unit/0.01ml Soln (100units/ml) SC SCH ×4 (02:05→17:34)
[2018-04-09] MEDS: ALBUTEROL SULF 2.5 MG/0.5ML(0.5%) NEB SOLN NEB SCH ×4 (02:29→14:16)
[2018-04-09] MEDS: IPRATROPIUM BROM 0.5 MG/2.5ML INH SOL NEB SCH ×4 (02:29→14:16)
[2018-04-09] MEDS: ACETYLCYSTEINE 10 %(100MG/ML) SOL 4ML NEB SCH ×4 (02:30→14:16)
[2018-04-09 05:00] VITALS: BP 123/64
[2018-04-09 05:44] LABS: Basophils # (auto) 0 uL; Basophils % (auto) 0.2 % (0.0-2.0); Eosinophils # (auto) 0 uL; Eosinophils % (auto) 0.1 % (0.0-7.0); Hematocrit 33.5 % (36.0-46.0); Hemoglobin 10.8 g/dL (12.2-16.2); Lymphocytes # (auto) 0.9 uL; Lymphocytes % (auto) 24.6 % (10.0-50.0); Mean Corpuscular Hemoglobin 28.5 pg (28.0-32.0); Mean Corpuscular Hgb Conc. 32.3 g/dL (32.0-36.0); Mean Corpuscular Volume 88.3 fL (80.0-100.0); Monocytes # (auto) 0.4 uL; Neutrophils # (auto) 2.5 uL; Neutrophils % (auto) 65.1 % (37.0-80.0); Nucleated Red Blood Cells % 0.1 %; Platelet Count (auto) 81 10^3/uL (140-450); Red Blood Cells 3.79 10^6/uL (4.0-5.20); Red Cell Distribution Width 16.2 % (11.8-14.3); White Blood Cell 3.8 10^3/uL (4.4-10.8)
[2018-04-09 06:04] LABS: BUN/Creatinine Ratio 8.9; Calcium 8.9 mg/dL (8.5-10.1); Potassium 3.8 mmol/L (3.5-5.1)
[2018-04-09] MEDS: LORazepam 0.5 MG TAB PO PRN (06:24)
[2018-04-09 09:17] VITALS: BP 123/64
[2018-04-09] MEDS: LISINOPRIL 20 MG TAB PO SCH (10:00)
[2018-04-09] MEDS: METOPROLOL TARTRATE 25 MG TAB PO SCH (10:00)
--- NOTE | 2018-04-09 10:00 | NUR ---
HEPARIN 5,000 UNIT NOT AVAILABLE. PHARMACY MADE AWARE.
[2018-04-09] MEDS: PANTOPRAZOLE 40 MG/10 ML VIAL IV SCH (10:15)
[2018-04-09] MEDS: ASPirin 81 mg TAB PO SCH (10:15)
[2018-04-09] MEDS: CLOPIDOGREL BISULFATE 75 MG TAB PO SCH (10:16)
--- NOTE | 2018-04-09 11:27 | NUR ---
HEPARIN NOTES PER PHARMACIST, VIAL WILL BE AVAILABLE IN THE [facility] BUT WILL SHOW THAT IT'S FOR DIALYSIS ONLY. SHE SAID TO GO AHEAD AND GIVE IT.
[2018-04-09] MEDS: LEVOFLOXACIN 500MG 100 ML IV SCH (12:00)
[2018-04-09 13:00] VITALS: BP 119/62
--- NOTE | 2018-04-09 13:36 | NUR ---
NUTRITION CONSULT/ASSESSMENT NOTES Please refer to link notes of nutrition screen form filed under the intervention section of the plan of care for further details. Est. Needs: 1400 kcal to 1600 kcal (30-35 kcal/kgBW), 55 gms to 69 gms pro (1.2-1.5 gms/kgBW d/t ESRD on HD). Will continue to monitor pertinent labs and reassess nutrient needs prn Thank you for this consult. Addendum: 04/09/18 at [address] Amended: Links added.
[2018-04-09] MEDS ORDERED: ATOR20TA50 PO (15:21)
[2018-04-09] MEDS ORDERED: ALBUAER3 IN (15:21)
[2018-04-09] MEDS ORDERED: LEVO500T21 PO (15:21)
[2018-04-09] MEDS ORDERED: FAM20T PO (15:21)
[2018-04-09 16:39] VITALS: BP 119/62
[2018-04-09 17:00] VITALS: BP 142/75
--- NOTE | 2018-04-09 19:28 | NUR ---
Patient accompanied to [facility] after discharge by primary nurse [place]. Patient in not distress on room air, patient states she does not need oxygen all the time, has oxygen at home. Patient accompanied by son and child.
--- NOTE | 2018-04-09 19:37 | NUR ---
Discharge instructions given as ordered. Encourage to follow up with PMD as instructed. All questions and concerns addressed. Patient verbalized understanding. Medication reconciliation form completed and copy given to patient. Home medications held in Pharmacy returned to patient, and needed vaccines given. IV removed with catheter intact, pressure dressing applied. Telemetry unit returned to ICU.
[2018-04-09] MEDS ORDERED: HEPARIN SODIUM (PORCINE) 5000 UNITS/ML 1ML VIAL SC SCH (22:00)
== END 2018-04-09 19:28 | disposition home or self-care (01) | DRG 208 ==
LOC: ER 21:26 → TELE 04-06 03:20 → ICU WEST 04-06 04:40 → TELE-WESTW 04-08 23:34
PROVIDERS: ADMIT Nurse Practitioner Family; ATTEND Internal Medicine
PROC: 5A1945Z Respiratory Ventilation, 24-96 Consecutive Hours (ICD-10-PCS; principal; 2018-04-06)
PROC: 0BH17EZ Insertion of Endotracheal Airway into Trachea, Via Natural or Artificial Opening (ICD-10-PCS; 2018-04-06)
PROC: 5A1D70Z Performance of Urinary Filtration, Intermittent, Less than 6 Hours Per Day (ICD-10-PCS; 2018-04-06)
PROC: 5A1D70Z Performance of Urinary Filtration, Intermittent, Less than 6 Hours Per Day (ICD-10-PCS; 2018-04-08)
DX: J96.01 Acute respiratory failure with hypoxia (principal); N18.6 End stage renal disease; G93.41 Metabolic encephalopathy; I50.43 Acute on chronic combined systolic (congestive) and diastolic (congestive) heart failure; J69.0 Pneumonitis due to inhalation of food and vomit; I13.2 Hypertensive heart and chronic kidney disease with heart failure and with stage 5 chronic kidney disease, or end stage renal disease; F11.20 Opioid dependence, uncomplicated; E87.2 Acidosis; D63.8 Anemia in other chronic diseases classified elsewhere; D69.6 Thrombocytopenia, unspecified; E11.21 Type 2 diabetes mellitus with diabetic nephropathy; E78.5 Hyperlipidemia, unspecified; G89.4 Chronic pain syndrome; N28.1 Cyst of kidney, acquired; T78.3XXA Angioneurotic edema, initial encounter; E11.22 Type 2 diabetes mellitus with diabetic chronic kidney disease; E11.40 Type 2 diabetes mellitus with diabetic neuropathy, unspecified; F41.9 Anxiety disorder, unspecified; H54.61 Unqualified visual loss, right eye, normal vision left eye; I25.10 Atherosclerotic heart disease of native coronary artery without angina pectoris; I25.2 Old myocardial infarction; Z98.61 Coronary angioplasty status; Z99.2 Dependence on renal dialysis; Z99.81 Dependence on supplemental oxygen; Z87.820 Personal history of traumatic brain injury; Z87.891 Personal history of nicotine dependence; Z86.73 Personal history of transient ischemic attack (TIA), and cerebral infarction without residual deficits; Z83.3 Family history of diabetes mellitus; Z82.49 Family history of ischemic heart disease and other diseases of the circulatory system; Z82.3 Family history of stroke; Z79.899 Other long term (current) drug therapy; Z79.4 Long term (current) use of insulin; Z79.82 Long term (current) use of aspirin
CPT/HCPCS: 36415; 36600; 70450; 71045; 80048; 80053; 80320; 82805; 82962; 83036; 83605; 83735; 83880; 84484; 85025; 85379; 85610; 85730; 87070; 87081; 87205; 90935; 92610; 93005; 94002; 94003; 94640; 96374; 96375; C9113; G0378; J0330; J1642; J1815; J1956; J2250

== ENCOUNTER 2018-11-01 13:53 | Inpatient (IN) | payer MEDICARE, MEDICAID | END 2018-11-04 19:40 | disposition home or self-care (01) | LOC: ER 13:53 → TELE 13:54 → TELE-WESTW 20:32 | DX: G93.41 Metabolic encephalopathy (principal); J18.9 Pneumonia, unspecified organism; N18.6 End stage renal disease; I50.43 Acute on chronic combined systolic (congestive) and diastolic (congestive) heart failure; I13.2 Hypertensive heart and chronic kidney disease with heart failure and with stage 5 chronic kidney disease, or end stage renal disease; N25.81 Secondary hyperparathyroidism of renal origin; E11.22 Type 2 diabetes mellitus with diabetic chronic kidney disease; E11.649 Type 2 diabetes mellitus with hypoglycemia without coma; Z99.2 Dependence on renal dialysis; D63.8 Anemia in other chronic diseases classified elsewhere ==